=== PATIENT | female | born 1970 | race Caucasian/White ===

== ENCOUNTER → 2018-07-24 10:50 | Outpatient (POV) | payer BC, SELFPAY | PROVIDERS: Visit Provider Specialist | DX: R20.8 Other disturbances of skin sensation (principal); R20.2 Paresthesia of skin | CPT/HCPCS: 95886; 95910 ==

== ENCOUNTER → 2020-08-28 15:36 | Outpatient (CLI) | payer BC, SELFPAY ==
--- NOTE | 2020-08-28 15:41 | XR_ITS ---
PROCEDURE: XR RIBS RT MIN 3V W CXR1V CLINICAL INDICATION: CHEST WALL ASYMMETRY COMPARISON: No exams were available for comparison FINDINGS: View of the chest shows no acute finding. There is minimal upper thoracic curvature convex right. Multiple views of the right ribs show no fracture or dislocation. No lytic or blastic change. IMPRESSION: Negative right ribs with chest. CT may be of further value for or thoracic asymmetry of clinically warranted Dictated by: Chuck Goss MD 08/28/2020 16:39 Chuck Goss MD in [place] 08/28/2020 16:39
== END ==
PROVIDERS: PCP Nurse Practitioner Family; Visit Provider Nurse Practitioner Family
DX: Q67.8 Other congenital deformities of chest (principal)
CPT/HCPCS: 71101

== ENCOUNTER 2023-09-23 13:16 | Outpatient (CLI) | payer BC, SELFPAY ==
--- NOTE | 2023-09-23 13:16 | MM_ITS ---
PROCEDURE INFORMATION: Exam: MG Bilateral Screening 3D Mammography Exam date and time: 09/23/2023 1:18 PM Age: 53 years old Clinical indication: Screening examination TECHNIQUE: Imaging protocol: Bilateral Screening tomosynthesis and 2D mammography including computer-aided detection (CAD) when performed. COMPARISON: No relevant prior studies available. FINDINGS: MAMMOGRAPHY: Breast composition: The breasts are heterogeneously dense, which may obscure small masses. Mass: None. Architectural distortion: None. Calcifications: No suspicious calcifications. Asymmetric density: None. Skin thickening: None. Axillary adenopathy: None. IMPRESSION: No mammographic evidence of malignancy. Annual screening is recommended unless otherwise clinically indicated. ASSESSMENT: BI-RADS Category 1: Negative
== END 2023-09-23 23:59 | disposition home or self-care (01) ==
LOC: RAD 13:16
PROVIDERS: PCP Nurse Practitioner Family; Visit Provider Nurse Practitioner Family
DX: Z12.31 Encounter for screening mammogram for malignant neoplasm of breast (principal)
CPT/HCPCS: 77063; 77067

== ENCOUNTER 2023-10-29 08:59 | Outpatient (CLI) | payer OTHER, SELFPAY ==
--- NOTE | 2023-10-29 09:04 | XR_ITS ---
FINAL REPORT CLINICAL HISTORY: right forearm pain, workmans comp FINDINGS: Two views of the right forearm were obtained. There is no acute fracture or dislocation. The joints are intact. There are no soft tissue abnormalities. IMPRESSION: No acute process. Reviewed, Interpreted and Dictated by Reji Ron MD Transcribed by Francine Thacker Authenticated and [facility]
--- NOTE | 2023-10-29 09:04 | XR_ITS ---
FINAL REPORT CLINICAL HISTORY: right wrist pain FINDINGS: Three views show no evidence of an acute, displaced fracture or dislocation of the visualized bony architecture. The joint spaces appear normal. IMPRESSION: Unremarkable exam. Reviewed, Interpreted and Dictated by Reji Ron MD Transcribed by Francine Thacker Authenticated and [facility]
== END 2023-10-29 23:59 | disposition home or self-care (01) ==
PROVIDERS: PCP Nurse Practitioner Family; Visit Provider Nurse Practitioner Family
DX: M25.531 Pain in right wrist (principal); M79.631 Pain in right forearm; M65.831 Other synovitis and tenosynovitis, right forearm
CPT/HCPCS: 73090; 73110

== ENCOUNTER 2024-01-21 09:58 | Outpatient (CLI) | payer BC, SELFPAY ==
[2024-01-21 13:07] LABS: Microscopic, Urine URINE MICROSCOPIC (MICROSCOPIC)
[2024-01-21 13:31] LABS: Appearance,Urine CLOUDY (Clear); Bilirubin,Urine Negative (Negative); Blood, Urine 3+ (Negative); Color,Urine YELLOW (Yellow); Glucose,Urine (UA) Negative (Negative); Ketones,Urine Negative (Negative); Leukocyte Esterase,Urine 2+ (Negative); Nitrate,Urine POSITIVE (Negative); Protein,Urine 1+ (Negative); Specific Gravity, Urine 1.025 (1.005-1.030); Urobilinogen,Urine 0.2 EU/dl (0.2)
[2024-01-21 13:43] LABS: Bacteria,Urine 1+ /lpf; WBC,Urine 20-50 #/hpf (0-3)
== END 2024-01-21 23:59 | disposition home or self-care (01) ==
LOC: LAB.DROPOF 01-22 08:59
PROVIDERS: PCP Nurse Practitioner Family; Visit Provider Nurse Practitioner Family
DX: N39.0 Urinary tract infection, site not specified (principal)
CPT/HCPCS: 81001; 87086; 87088; 87186

== ENCOUNTER 2024-02-10 15:54 | Outpatient (CLI) | payer BC, SELFPAY ==
[2024-02-10 16:38] LABS: Microscopic, Urine URINE MICROSCOPIC (MICROSCOPIC)
[2024-02-10 17:23] LABS: Appearance,Urine CLEAR (Clear); Bilirubin,Urine Negative (Negative); Blood, Urine Negative (Negative); Color,Urine YELLOW (Yellow); Glucose,Urine (UA) Negative (Negative); Ketones,Urine Negative (Negative); Leukocyte Esterase,Urine 3+ (Negative); Nitrate,Urine POSITIVE (Negative); Protein,Urine Negative (Negative); Urobilinogen,Urine 0.2 EU/dl (0.2)
[2024-02-10 17:52] LABS: Bacteria,Urine 4+ /lpf; WBC,Urine TNTC #/hpf (0-3)
== END 2024-02-10 23:59 | disposition home or self-care (01) ==
LOC: LAB.DROPOF 02-11 11:01
PROVIDERS: PCP Nurse Practitioner Family; Visit Provider Nurse Practitioner Family
DX: N39.0 Urinary tract infection, site not specified (principal)
CPT/HCPCS: 81001; 87086; 87088; 87186

== ENCOUNTER 2024-04-29 07:58 | Day surgery (SDC) | payer BC, SELFPAY ==
[2024-04-28 10:37] VITALS: BMI 22.3
[2024-04-29] MEDS: LACTATED RINGERS 1000ML 1,000 ML 25 ML IV (08:12)
[2024-04-29 08:13] VITALS: BP 118/71; PULSE 67; RESP 18; TEMP 36.6; O2SAT 97
--- NOTE | 2024-04-29 08:26 | EXP.ANES.CKL ---
[facility] Disclaimer: The information contained in this section may have been updated after the patient was seen, as this information can be updated by other users. Medical History Carpal tunnel syndrome of right wrist Extensor tenosynovitis of right wrist Tenosynovitis of right wrist Surgical History History of carpal tunnel release Family History Other No significant family history Social History Smoking Status: Never smoker alcohol intake: never substance use type: denies use current occupational status: employed Travel in the last 8 weeks: None household members: family housing: house [facility] Anesthesia Checklist Patient Identification Patient Identification: Arm Band and Verbal (Name & ) Structural Data Admitted From: Home Planned Operative Procedure/s: EGD/Colonoscopy Consent for Planned Operative Procedure(s) Verified: Yes Verified Documents: Surgical Consent and History and Physical NPO Status Verified Time NPO: 04:45 Additional verifications Anesthesia Reactions: No Airway Assessment Mallampati Score:: Class II C-Spine Mobility Assessed: Yes TMJ Mobility Assessed: Yes Dentition: Good Dentition Neurological Assessment Level of Consciousness: Awake Hx Seizures: No Numbness or tingling in extremities: No Anesthesia Plan Anesthesia Risk discussed: Yes Anesthesia Plan: Verified ASA Class: I Anesthesia Type: MAC
--- NOTE | 2024-04-29 09:28 | EXP.HP ---
History of Present Illness *Admission Date: 04/29/24 *Reason for visit:: Dysphagia for upper endoscopy and screening for colonoscopy *History of present illness: Mrs. Shelley is a 53-year-old female who is here for therapeutic/diagnostic upper endoscopy secondary to dysphagia and screening for colonoscopy. The examination is deemed medically necessary for EGD and colonoscopy. The patient has been seen, interviewed and examined prior to the procedure by both myself and the anesthesia provider. [facility] Disclaimer: The information contained in this section may have been updated after the patient was seen, as this information can be updated by other users. Medical History Carpal tunnel syndrome of right wrist Extensor tenosynovitis of right wrist Tenosynovitis of right wrist Surgical History History of carpal tunnel release Family History Other No significant family history Social History (Updated 04/29/24 @ 08:27 by Roberto Carlos Sykes CRNA) Smoking Status: Never smoker alcohol intake: never substance use type: denies use current occupational status: employed Travel in the last 8 weeks: None household members: family housing: house Have you lived/traveled outside US in past 30 days?: No Contact w/someone who lives/traveled outside US past 30 days?: No Exposure to someone with infectious disease in past 14 days?: No Do you have a fever (greater than 100.4 F or 38 C)?: No Have you tested positive for COVID-19: No Exposed to someone with COVID-19 in past 14 days?: No Do you have a sore throat?: No Do you have a cough?: No Do you have any weakness?: No Are you experiencing any nausea/vomitting?: No Do you have any diarrhea?: No Are you experiencing any unusual bleeding?: No Do you have any muscle aches/pain?: No Do you have any abdominal pain?: No Are you experiencing loss of taste or smell?: No Other Medical History Have you received the Pneumonia Vaccine: No Review of Systems Review of Systems Review of systems (narrative): Negative *Cardiovascular Comments: Negative *Gastrointestinal Comments: Negative *Genitourinary Comments: Negative *Musculoskeletal Comments: Negative *Neurologic Comments: Negative Meds Home Medications and Allergies Home Medications ?Medication ?Instructions ?Recorded ?Confirmed ?Type No Known Home Medications 04/29/24 04/29/24 History New Prescriptions to Start Prescriptions: Allergies Allergy/AdvReac Type Severity Reaction Status Date / Time Sulfa (Sulfonamide Allergy Mild Rash Verified 04/29/24 08:13 Antibiotics) Exam Data for Last 24 hours Vital signs and Labs for Last 24 Hours: Temp Pulse Resp BP Pulse Ox O2 Del Method 97.8 F 67 18 118/71 97 Room Air 04/29/24 08:13 04/29/24 08:13 04/29/24 08:13 04/29/24 08:13 04/29/24 08:13 04/29/24 08:13 I & O for Last 24 hours: Intake & Output 04/26/24 04/27/24 04/28/24 04/29/24 23:59 23:59 23:59 23:59 Weight 134 lb *Routine HEENT Exam Head: Present normocephalic Eye: Present EOMI and PERRL ENT: Present mucous membranes moist *Routine Neck Exam Neck: Present supple *Routine Respiratory Exam Respiratory: Present CTA bilaterally *Routine Cardiovascular Exam Cardiovascular: Present RRR *Routine Abdominal Exam Abdominal: Present soft and normoactive bowel sounds; Absent tenderness *Routine Rectal Exam Rectal:: deferred *Routine Genitalia Exam Genitalia:: deferred *Routine Extremities Exam Extremities: Absent cyanosis, clubbing or edema *Routine Skin Exam Skin: Present warm; Absent rash *Routine Neurological Exam Neurological: Present alert and oriented X3 Assessment and Plan *Assessment and plan (1) Dysphagia: Status: Acute Category: Medical Code(s): R13.10 - Dysphagia, unspecified (2) Screening for colon cancer: Status: Acute Category: Medical Code(s): Z12.11 - Encounter for screening for malignant neoplasm of colon Plan A/P: 1. Dysphagia for upper endoscopy and screening for colon cancer for colonoscopy is the preprocedural diagnosis. The patient will be anesthetized/sedated using MAC sedation. The patient has been seen and examined. Cardiac and lung assessment prior to the examination is stable. Proceed with planned EGD and colonoscopy
[2024-04-29 09:32] VITALS: O2SAT 97
--- NOTE | 2024-04-29 09:45 | HMH.PROCNOTE ---
[facility] Procedure Note Date: 04/29/24 Time: 09:53 Procedure Note:: Upper Endoscopy Procedure Report: Esophagogastroduodenoscopy with cold biopsies and TTS balloon dilation Endoscopost: Adam Fonseca II, MD Referring Physician: HALINA Martel Date of Procedure: April 29, 2024 Equipment: Olympus GIF 190 standard upper endoscope Sedation: MAC sedation Indications: Mrs. Shelley is a 53-year-old female who is here for diagnostic/therapeutic upper endoscopy secondary to dysphagia which she has had for a few years. She does not have to regurgitate food but feels this intermittently and it occurs primarily with solids. She does get some chronic heartburn and bloating. She reports no belching or globus sensation. She does have some chronic constipation. This is her first upper endoscopy. Procedure: Prior to the procedure, a history and physical exam was performed, and patient's medications and allergies were reviewed. The risks, benefits and alternatives of the sedation and procedure were discussed with the patient. All questions were answered and informed consent was obtained. The patient was brought to the procedure room. Patient identification and proposed procedure were verified by the physician and the nurse. The patient was placed in a left lateral decubitus position and the scope was passed under direct vision. Throughout the procedure, the patient's blood pressure, pulse, and oxygen saturations were monitored continuously. The upper GI endoscopy was accomplished without difficulty. The patient tolerated the procedure well. Findings: The scope was passed directly into the upper esophagus and advanced to the third portion of the duodenum. The post bulbar duodenum and duodenal bulb were normal with normal mucosa and conniventes. The scope was withdrawn through a normal duodenal bulb and pylorus into the stomach. There was some linear reactive gastropathy of the antrum and mild chronic gastritis of the body and fundus. Biopsies were taken from the antrum and lesser curvature. Upon retroflexion there was no hiatal hernia. The scope was then withdrawn into the esophagus. There was no evidence of reflux esophagitis, Schatzki's ring or Crockett's. Biopsies were taken at the GE junction. There was no corrugation or furrowing. There was no proximal esophageal inlet patch. There were tertiary contractions and evidence of moderate esophageal dysmotility. The entire esophagus was dilated to 60 Kiswahili/20 mm with a TTS hydrostatic balloon. There was some resistance at the cricopharyngeus/cricopharyngeal spasm. The remainder of the esophageal mucosa was normal. Impression: 1. Cricopharyngeal spasm status post dilation to 20 mm 2. Nonerosive GERD with moderate esophageal dysmotility 3. Linear reactive gastropathy and mild chronic gastritis Plan: I will follow-up the biopsies and discussed the findings with the patient and family. I do feel that her cricopharyngeal spasm is resulting in some of the swallowing difficulties. She should have improvement with dilation and we will discuss additional treatment options including Iberogast. I will proceed with screening colonoscopy.
--- NOTE | 2024-04-29 09:55 | HMH.PROCNOTE ---
[facility] Procedure Note Date: 04/29/24 Time: 10:09 Procedure Note:: Colonoscopy Procedure Report: Colonoscopy Endoscopist: Adam Fonseca II, MD Referring physician: HALINA Martel Date of Procedure: April 29, 2024 Equipment: Olympus 190 variable stiffness pediatric colonoscope Sedation: MAC sedation Indication: Mrs. Shelley is a 53-year-old female who is here for initial screening colonoscopy. She reports no abdominal pain, weight loss, change in her bowel habits or rectal bleeding. She reports no family history of colon cancer. She does have some chronic idiopathic constipation. Procedure: Prior to the procedure, a history and physical exam was performed, and patient's medications and allergies were reviewed. The risks, benefits and alternatives of the sedation and procedure were discussed with the patient. All questions were answered and informed consent was obtained. The patient was brought to the procedure room. Patient identification and proposed procedure were verified by the physician and the nurse. The patient was placed in a left lateral decubitus position and the scope was passed under direct vision. Throughout the procedure, the patient's blood pressure, pulse, and oxygen saturations were monitored continuously. The colonoscopy was accomplished without difficulty. The patient tolerated the procedure well. Findings: On digital rectal examination there was normal rectal tone. There were no external hemorrhoids. The colonoscope was introduced through the anal canal to the rectum and advanced to the cecum. The ileocecal valve and appendiceal orifice were identified. The scope was advanced a short distance into the ileum which appeared grossly normal. The scope was then withdrawn into the colon. There was very mild melanosis coli noted throughout the colon. The cecum, ascending, transverse, descending, sigmoid and rectum were otherwise grossly normal. There were no mucosal abnormalities identified. Upon retroflexion within the rectum there were grade 1-2 internal hemorrhoids.The preparation was excellent throughout with [place] Preparation Score of 9. The cecal time was 10 minutes. Impression: 1. Normal colonoscopy with intubation of the terminal ileum 2. Mild melanosis coli 3. Grade 1-2 internal hemorrhoids Plan: The patient will not require surveillance colonoscopy again for 10 years. The patient does have mild melanosis coli. Melanosis coli is a disorder of pigmentation of the wall of the colon. It is benign and has no correlation with disease. Melanosis coli is a misnomer since the brown pigmentation is actually caused by a substance call lipofuscin deposited in cells called macrophages. It is not a melanin deposit. It is most commonly caused by a group of laxatives commonly known to us as anthroquinolones such as senna and other plant/natural laxatives. No adverse effects or consequences of melanosis coli have ever been identified. I would still consider a change to bowel habit training with Linzess or Trulance. I will discuss the findings with the patient and family.
[2024-04-29 10:14] VITALS: BP 110/69; PULSE 84; RESP 16; TEMP 36.1; O2SAT 98
[2024-04-29 10:24] VITALS: BP 103/75; PULSE 72; RESP 18; O2SAT 99
[2024-04-29 10:34] VITALS: BP 103/67; PULSE 58; RESP 16; O2SAT 99
[2024-04-29 10:44] VITALS: BP 110/70; PULSE 62; RESP 16; O2SAT 99
== END 2024-04-29 11:00 | disposition home or self-care (01) ==
PROVIDERS: PCP Nurse Practitioner Family; Visit Provider Internal Medicine Gastroenterology
PROC: 0DJ08ZZ Inspection of Upper Intestinal Tract, Via Natural or Artificial Opening Endoscopic (ICD-10-PCS; CPT 45378; principal; 2024-04-29 09:30)
DX: R13.10 Dysphagia, unspecified (principal); K59.04 Chronic idiopathic constipation; K31.9 Disease of stomach and duodenum, unspecified; K29.70 Gastritis, unspecified, without bleeding; K22.4 Dyskinesia of esophagus; K21.9 Gastro-esophageal reflux disease without esophagitis; J39.2 Other diseases of pharynx; K63.89 Other specified diseases of intestine; K64.8 Other hemorrhoids; Z12.11 Encounter for screening for malignant neoplasm of colon
CPT/HCPCS: 43239; 43249; 45378; C1726; J7120

== ENCOUNTER 2024-06-15 09:49 | Outpatient (CLI) | payer BC, SELFPAY ==
[2024-06-15 16:41] LABS: Microscopic, Urine URINE MICROSCOPIC (MICROSCOPIC)
[2024-06-15 20:18] LABS: Appearance,Urine CLEAR (Clear); Bilirubin,Urine Negative (Negative); Blood, Urine Negative (Negative); Color,Urine YELLOW (Yellow); Glucose,Urine (UA) Negative (Negative); Ketones,Urine Negative (Negative); Leukocyte Esterase,Urine TRACE (Negative); Nitrate,Urine Negative (Negative); PH,Urine 6.5 (5.0-8.5); Protein,Urine Negative (Negative); Specific Gravity, Urine 1.025 (1.005-1.030); Urobilinogen,Urine 0.2 EU/dl (0.2)
[2024-06-15 20:23] LABS: Bacteria,Urine 1+ /lpf; Squamous Epithelial Cell,Urine 20-50 #/hpf (0-5)
== END 2024-06-15 23:59 | disposition home or self-care (01) ==
LOC: LAB.DROPOF 06-16 09:49
PROVIDERS: PCP Nurse Practitioner Family; Visit Provider Nurse Practitioner Family
DX: N39.0 Urinary tract infection, site not specified (principal)
CPT/HCPCS: 81001; 87086; 87088; 87186

== ENCOUNTER 2024-07-06 15:20 | Outpatient (CLI) | payer BC, SELFPAY ==
[2024-07-06 16:52] LABS: Microscopic, Urine URINE MICROSCOPIC (MICROSCOPIC)
[2024-07-06 17:02] LABS: Appearance,Urine CLEAR (Clear); Bilirubin,Urine Negative (Negative); Blood, Urine Negative (Negative); Color,Urine YELLOW (Yellow); Glucose,Urine (UA) Negative (Negative); Ketones,Urine Negative (Negative); Leukocyte Esterase,Urine Negative (Negative); Nitrate,Urine Negative (Negative); Protein,Urine Negative (Negative); Specific Gravity, Urine >= 1.030 (1.005-1.030); Urobilinogen,Urine 0.2 EU/dl (0.2)
[2024-07-06 17:43] LABS: Bacteria,Urine 2+ /lpf; Mucus,Urine 3+ /lpf
== END 2024-07-06 23:59 | disposition home or self-care (01) ==
LOC: LAB.DROPOF 18:37
PROVIDERS: PCP Nurse Practitioner Family; Visit Provider Nurse Practitioner Family
DX: R30.0 Dysuria (principal); N39.0 Urinary tract infection, site not specified
CPT/HCPCS: 81001; 87086

== ENCOUNTER 2024-07-29 14:45 | Outpatient (CLI) | payer BC, SELFPAY ==
[2024-07-29 17:06] LABS: Microscopic, Urine URINE MICROSCOPIC (MICROSCOPIC)
[2024-07-29 17:16] LABS: Bilirubin,Urine Negative (Negative); Blood, Urine Negative (Negative); Color,Urine YELLOW (Yellow); Glucose,Urine (UA) Negative (Negative); Ketones,Urine Negative (Negative); Leukocyte Esterase,Urine MODERATE (Negative); Nitrate,Urine Negative (Negative); PH,Urine 5.5 (5.0-8.5); Protein,Urine Negative (Negative); Specific Gravity, Urine >= 1.030 (1.005-1.030); Urobilinogen,Urine 0.2 EU/dl (0.2)
[2024-07-29 17:18] LABS: Appearance,Urine Slightly Cloudy (Clear)
[2024-07-29 17:45] LABS: Bacteria,Urine 3+ /lpf; Calcium Oxalate Crystals,Urine 1+ /lpf; Mucus,Urine 3+ /lpf; WBC,Urine 50-100 #/hpf (0-3)
== END 2024-07-29 23:59 | disposition home or self-care (01) ==
LOC: LAB.DROPOF 07-30 11:14
PROVIDERS: PCP Nurse Practitioner Family; Visit Provider Nurse Practitioner Family
DX: N39.0 Urinary tract infection, site not specified (principal)
CPT/HCPCS: 81001; 87086; 87088; 87186

== ENCOUNTER 2024-08-20 10:56 | Outpatient (CLI) | payer BC, SELFPAY ==
--- OUTSIDE RECORDS SUMMARY | 2024-08-23 10:58 | XMS_ITS | Clinical Summary ---
Author Organization [facility] Address [address] [place] [address] Phone Care Team Providers Care Service Supervisor Name Role Phone Adithya POSEY, Julio Unavailable [phone] NO, PCP Unavailable Unavailable Reason for Visit and Chief Complaint [facility] Problems Includes: Problems addressed during this encounter and other active Problems All Visits Onset Date Resolved Date Provider Condition S tatus Joint Pain, Localized in the Right Wrist 01/06/2024 Robbie Leon PA-C Active Last Documented On 4 11:39AM ; [facility] Plan of Treatment No Plan of Treatment Recorded Assessments Includes: Assessments from this encounter No Assessments Recorded Medical Equipment - Implanted Devices Includes: Current Devices No Medical Equipment Recorded Medications Includes: Medications discussed during this encounter and other current Medications Current Medications (continue as prescribed) Cephalexin 500 MG Oral Capsule 04/19/2024 Provider: Julio Haji MD Diagnosis: 1 tablet four times a dayTAK E FIRST DOSE 1 HOUR PRIOR TO PROCEDURE Last Documented On 4 11:28AM By Bess [facility], [facility] Meloxicam 15 MG Oral Tablet 04/19/2024 Provider: Julio Haji MD Diagnosis: take 1 tablet once a dayBEGI N AFTER COMPLETION OF DOSE PACK Last Documented On 4 11:28AM By Bess [facility], [facility] Medrol 4 MG Oral Tablet Therapy Pack 04/19/2024 Prov ider: Julio Haji MD Diagnosis: use as directed Last Documented On 4 11:28AM By Bess Barreto ; [facility] Medications Administered Includes: Administered Medications from this encounter No Administered Medications Recorded Results Includes: Results discussed during this encounter No Results Recorded For Specified Dates History of Present Illness Includes: History of Present Illness from this encounter No History of Present Illness Recorded Social History No Social History Recorded - Smoking Status Unknown Medical History Includes: Medical History addressed during this encounter No Medical History Recorded Family History Includes: Family History addressed during this encounter No Family History Recorded Review of Systems Includes: Review of Systems from this encounter No Review of Systems Recorded Mental Status Includes: Mental Status from this encounter No Mental Status Recorded Functional Status Includes: Functional Status from this encounter No Functional Status Recorded Physical Exam Includes: Physical Exam from this encounter No Physical Exam Recorded Allergies Includes: Active Allergies Substance Type Reaction Onset Date Resolved Date Statu s Sulfa Antibiotics Allergy Skin Rashes / Eruption of skin 01/06/2024 Active Last Documented On 5 1:55PM ; [facility] Encounters Encounter Provider Location Date Check-In Time Check-Out Time Diagnosis [facility] Julio Haji MD 4 9:00AM 11:59PM Insurance Includes: Active Insurance Policies Plan Name Member ID Group # Subscriber Relationship Effect rosie Dates 1 - [facility] [id number] August Karsten Self 2 - [id number] [facility] 05/27 - Unknown 3 - [employer] [id number] [address] [facility] 05/27/2023 - Unknown 4 - [employer] [id number] [facility] 2023 - Unknown Clinical Notes Includes: Clinical Notes from this encounter No Clinical Notes Recorded
--- OUTSIDE RECORDS SUMMARY | 2024-08-23 10:58 | XMS_ITS | Clinical Summary ---
Author Organization [facility] Address [address] [place] [address] Phone Care Team Providers Care Central Supply Technician Supervisor Name Role Phone Adithya POSEY, Julio Unavailable [phone] NO, PCP Unavailable Unavailable Reason for Visit and Chief Complaint [facility] Problems Includes: Problems addressed during this encounter and other active Problems All Visits Onset Date Resolved Date Provider Condition S tatus Joint Pain, Localized in the Right Wrist 01/06/2024 Robbie Leon PA-C Active Last Documented On 4 11:39AM ; [facility] Plan of Treatment No Plan of Treatment [...] Documented On 4 11:28AM By Bess [facility], [facility] Meloxicam 15 MG Oral Tablet 04/19/2024 Provider: Julio Haji MD Diagnosis: take 1 tablet once a dayBEGI N AFTER COMPLETION OF DOSE PACK Last Documented On 4 11:28AM By Bess [facility], [facility] Medrol 4 MG Oral Tablet Therapy Pack 04/19/2024 Prov ider: Julio Haji MD Diagnosis: use as directed Last Documented On 4 11:28AM By Bess Barreto ; [facility] Medications Administered Includes: Administered Medications from this encounter No Administered Medications Recorded Results Includes: Results discussed during this encounter No Results Recorded For Specified Dates History of Present Illness Includes: History of Present Illness from this encounter No History of Present Illness Recorded Social History No Social History Recorded - Smoking Status Unknown Procedures and Surgical History Includes: Procedures from this encounter Procedures Code Diagnosis Performing Provider Service Location Service Date DECOMPRESSION MEDIAN NERVE AT CARPAL (LEFT) 18232 Carpal tunnel syndrome, left upper limb Julio Haji MD [facility] 04/20/2024 Last Documented On 4 10:35AM ; [facility] Medical History Includes: Medical History addressed during [...] Active Last Documented On 5 1:55PM ; [facility], [facility] Encounters Encounter Provider Location Date Check-In Time Check-Out Time Diagnosis [facility] Julio Haji MD Surgery 4 8:48AM 11:59PM Insurance Includes: Active Insurance Policies Plan Name Member ID Group # Subscriber Relationship Effect rosie Dates 1 - [facility] [id number] August Karsten Self 2 - JESSICA [id number] August Karsten [place] 05/27 - Unknown 3 - [employer] [id number] August Karsten [place] 05/27/2023 - Unknown 4 - [employer] [id number] August Karsten [facility] 2023 - Unknown Clinical Notes Includes: Clinical Notes from this encounter No Clinical Notes Recorded
--- OUTSIDE RECORDS SUMMARY | 2024-08-23 10:58 | XMS_ITS | Clinical Summary ---
Author Organization [facility] , [facility] Address [address] [place] [address] Phone Care Team Providers Care Horologist Apprentice Name Role Phone Adithya POSEY, Julio Unavailable [phone] NO, PCP Unavailable Unavailable Reason for Visit and Chief Complaint The Chief Complaint is: right wrist pain Problems Includes: Problems addressed during this encounter and other active Problems All Visits Onset Date Resolved Date Provider Condition S tatus Joint Pain, Localized in the Right Wrist 01/06/2024 Robbie Leon PA-C Active Last Documented On 4 11:39AM ; [facility] Plan of Treatment Pending Tests Order Diagnosis Results Due Ordering P rovider Procedure/Tests BGO EMG 04/05/24 Robbie gould PA-C Last Documented On 4 9:45AM ; [facility], [facility] Assessments Includes: Assessments from this encounter Findings 53-year-old Female with improved right ECU tendinitis. The patient was doing quite well. Her pain is much better, but does still have some discomfort with strong gripping and twisting activities. Recommend a wrist widget to help with the symptom. Okay to return to work without restriction. She may follow up with us as needed moving forward - Last Documented On 06/03/2024 8:51AM ; [facility] Medical Equipment - Implanted Devices Includes: Current Devices No Medical Equipment Recorded Medications Includes: Medications discussed during this encounter and other current Medications Current Medications (continue as prescribed) Cephalexin 500 MG Oral Capsule 04/19/2024 Provider: Julio Haji MD Diagnosis: 1 tablet four times a dayTAK E FIRST DOSE 1 HOUR PRIOR TO PROCEDURE Last Documented On 11:28AM By Bess Barreto ; [facility], [facility] Meloxicam 15 MG Oral Tablet 04/19/2024 Provider: Julio Haji MD Diagnosis: take 1 tablet once a dayBEGI N AFTER COMPLETION OF DOSE PACK Last Documented On 11:28AM By Bess Barreto ; [facility] Medrol 4 MG Oral Tablet Therapy Pack 04/19/2024 Prov ider: Julio Haji MD Diagnosis: use as directed Last Documented On 4 11:28AM By Bess Barreto ; [facility] Past Medications on file dexAMETHasone Sodium Phospha te 4 MG/ML Injection Solution 01/21/2024 - 02/20/2024 Provider: Robbie gould PA-C Diagnosis: use as directed; to be used by Physical Therapy Last Documented On 1:39PM By Loretta Ernandez ; [facility] Medications Administered Includes: Administered Medications from this encounter No Administered Medications Recorded Vital Signs Includes: Vital Signs from this encounter Vital Name 06/02/2024 01:56P Height (in) 65 Weight (lb) 135 Body Mass Index 22.5 Body Surface Area 1.7 Note: MG Last Documented: On 06/02/2024 1:56PM ; [facility] Results Includes: Results discussed during this encounter No Results Recorded For Specified Dates History of Present Illness Includes: History of Present Illness from this encounter HPI Tsering Shelley is a 53 year old female. - Allergy list reviewed - Problem list reviewed - Medication list reviewed 53-year-old female here for follow-up of her right ECU tendinitis. The patient was ulnar-sided wrist pain has doing much better. She was little to no symptoms. She was doing most all activities around the house without significant issue, but does still have some slight discomfort with strong gripping and twisting activities.. Social History Description Last Updated Caffeine use 06/02/2024 Last Documented On 5 8:51AM ; [facility] Exercising regularly 06/02/2024 Last Documented On 5 8:51AM ; [facility] No recent change in diet 06/02/2024 Last Documented On 5 8:51AM ; [facility] Not a current smoker. 06/02/2024 Last Documented On 5 8:51AM ; [facility] Not using alcohol 06/02/2024 Last Documented On 5 8:51AM ; [facility] Not using drugs 06/02/2024 Last Documented On 5 8:51AM ; [facility] Smoking Status Unknown Procedures and Surgical History Surgical History Last Updated History of hysterectomy 06/02/2024 Last Documented On 5 8:51AM ; [facility] Medical History Includes: Medical History addressed during this encounter Description Last Updated Past medical history non-contributory Last Documented On 5 8:51AM ; [facility] Family History Includes: Family History addressed during this encounter Description Last Updated Maternal history of family history of ca ncer 06/02/2024 Last Documented On 5 8:51AM ; [facility] Review of Systems Includes: Review of Systems from this encounter Systemic: Not feeling tired, no recent weight loss, and no recent weight gain. Head: No headache and no sinus pain. Eyes: No vision problems, no Cataracts, no Glasses/Contacts, and no Glaucoma. Otolaryngeal: No hearing loss and no tinnitus. Cardiovascular: No chest pain or discomfort, no palpitations, no Hypertension, and no High Cholesterol. Pulmonary: No daytime asthma symptoms and no chronic cough. No wheezing. Gastrointestinal: No heartburn and no abdominal pain. No Indigestion, no Peptic Ulcer, no GI Stomach Bleed, no Ulcers, and no Acid Reflux. Endocrine: No hot flashes, no muscle weakness, no Diabetes, no Hypothyroid, and no Hyperthyroid. Hematologic: No easy bleeding, no tendency for easy bruising, and no Anemia. Musculoskeletal: No Arthritis and no lower back pain. No soft tissue swelling and no localized joint pain. Neurological: No dizziness, no convulsions, and no numbness. Psychological: No anxiety, no emotional lability, no depression, and no insomnia. Not crying for no reason. Skin: No dry skin. No Ulcers, no Scars, and no rash. Allergic and Immunologic: No complaint of seasonal allergic reaction. Mental Status Includes: Mental Status from this encounter Description No anxiety Functional Status Includes: Functional Status from this encounter No Functional Status Recorded Physical Exam Includes: Physical Exam from this encounter Allergies Includes: Active Allergies Substance Type Reaction Onset Date Resolved Date Statu s Sulfa Antibiotics Allergy Skin Rashes / Eruption of skin 01/06/2024 Active Last Documented On 1:55PM ; [facility], [facility] Encounters Encounter Provider Location Date Check-In Time Check-Out Time Diagnosis FOLLOW UP/EST Robbie Leon PA-C [facility] 06/02/19 25 1:29PM 2:38PM Insurance Includes: Active Insurance Policies Plan Name Member ID Group # Subscriber Relationship Effect rosie Dates 1 - [id number] Tsering Shelley Self 2 - JESSICA [id number] Tsering Shelley Self 05/27 - Unknown 3 - [employer] [id number] Tsering Pringle 05/27/2023 - Unknown 4 - [employer] [id number] Tsering Shelley Self 2023 - Unknown Clinical Notes Includes: Clinical Notes from this encounter * Progress note Date Encounter Last Documented by 06/02/2024 FOLLOW UP/EST Last documented on 06/03/2024; 8:51 AM, Robbie Leon PA-C; [facility], [facility] Active Problems & Conditions - Joint Pain, Localized in the Right Wrist Chief Complaint The Chief Complaint is: Right wrist pain. Referred Here Referred by . History of Present Illness Tsering Shelley is a 53 year old female. - Allergy list reviewed - Problem list reviewed - Medication list reviewed 53-year-old female here for follow-up of her right ECU tendinitis. The patient was ulnar-sided wrist pain has doing much better. She was little to no symptoms. She was doing most all activities around the house without significant issue, but does still have some slight discomfort with strong gripping and twisting activities.. Current Medication - Cephalexin 500 MG Oral Capsule 1 tablet four times a dayTAKE FIRST DOSE 1 HOUR PRIOR TO PROCEDURE, 7 days, 0 refills - Medrol 4 MG Oral Tablet Therapy Pack use as directed, 6 days, 0 refills - Meloxicam 15 MG Oral Tablet take 1 tablet once a dayBEGIN AFTER COMPLETION OF DOSE PACK, 30 days, 1 refills Past Medical/Surgical History Past medical history non-contributory. Surgical: - Hysterectomy Social History Not a current smoker. Current diet: No recent change in diet. Caffeine use: Caffeine use. Alcohol: Not using alcohol. Drug Use: Not using drugs. Habits: Exercising regularly. Allergies - Sulfa Antibiotics Reaction: Skin Rashes / Eruption of skin Family History Maternal: Cancer Review Of Systems Systemic: Not feeling tired, no recent weight loss, and no recent weight gain. Head: No headache and no sinus pain. Eyes: No vision problems, no Cataracts, no Glasses/Contacts, and no Glaucoma. Otolaryngeal: No hearing loss and no tinnitus. Cardiovascular: No chest pain or discomfort, no palpitations, no Hypertension, and no High Cholesterol. Pulmonary: No daytime asthma symptoms and no chronic cough. No wheezing. Gastrointestinal: No heartburn and no abdominal pain. No Indigestion, no Peptic Ulcer, no GI Stomach Bleed, no Ulcers, and no Acid Reflux. Endocrine: No hot flashes, no muscle weakness, no Diabetes, no Hypothyroid, and no Hyperthyroid. Hematologic: No easy bleeding, no tendency for easy bruising, and no Anemia. Musculoskeletal: No Arthritis and no lower back pain. No soft tissue swelling and no localized joint pain. Neurological: No dizziness, no convulsions, and no numbness. Psychological: No anxiety, no emotional lability, no depression, and no insomnia. Not crying for no reason. Skin: No dry skin. No Ulcers, no Scars, and no rash. Allergic and Immunologic: No complaint of seasonal allergic reaction. Physical Findings - Vitals taken 06/02/2024 01:56 pm MG Height 65 in Weight 135 lbs Body Mass Index 22.5 kg/m2 Body Surface Area 1.7 m2 PHYSICAL EXAM: CONSTITUTIONAL: Well developed, well groomed, well nourished patient in no acute distress who appears stated age, height and weight. PSYCHIATRIC: The patient is alert and oriented to person, place, date and situation. Mood and affect are normal for current situation. NEUROLOGICAL: Sensation normal bilateral upper and lower extremities. LYMPHATIC: No pitting edema noted in the lower extremities. SKIN: No lesions noted on upper or lower extremities. Skin is dry, warm and with normal turgor. VASCULAR: No swelling in upper or lower extremities other than described below in extremity exam. Pulses normal in both upper (radial) extremities. GAIT AND STATION: Normal gait without assistive devices. Station normal. RIGHT WRIST/HAND: Able to make a full composite fist Able to fully flex and extend all fingers Hand is warm and well perfused Sensation intact to light touch distally in all nerve distributions No tenderness over the ulnar styloid or 6th dorsal compartment No evidence of ECU subluxation No tenderness in the ulnar fovea Flexion: 90 degrees Extension: 70 degrees Pronation: 90 degrees Supination: 90 degrees Strength: 5/5 wrist flexion, 5/5 extension, 5/5 supination, 5/5 pronation. User Defined 5 53-year-old Female with improved right ECU tendinitis. The patient was doing quite well. Her pain is much better, but does still have some discomfort with strong gripping and twisting activities. Recommend a wrist widget to help with the symptom. Okay to return to work without restriction. She may follow up with us as needed moving forward Counseling/Education - Tobacco non-user - Use of tobacco assessment performed Notes This dictation was done with voice recognition software and may contain errors and omissions. Care Team - PCP NO
--- OUTSIDE RECORDS SUMMARY | 2024-08-23 10:58 | XMS_ITS | Clinical Summary ---
Author Organization [facility] , [facility] Address [address] [place] [address] Phone Care Team Providers Care Calculating Machine Mechanic Name Role Phone Adithya POSEY, Julio Unavailable [phone] NO, PCP Unavailable Unavailable Reason for Visit and Chief Complaint Phone Call Problems Includes: Problems addressed during this encounter and other active Problems All Visits Onset Date Resolved Date Provider Condition S tatus Joint Pain, Localized in the Right Wrist 01/06/2024 Robbie Leon PA-C Active Last Documented On 11:39AM ; [facility], [facility] Plan of Treatment No [...] Documented On 11:28AM By Bess Barreto ; [facility], [facility] Meloxicam 15 MG Oral Tablet 04/19/2024 Provider: Julio Haji MD Diagnosis: take 1 tablet once a dayBEGI N AFTER COMPLETION OF DOSE PACK Last Documented On 11:28AM By Bess Barreto ; [facility], [facility] Medrol 4 MG Oral Tablet Therapy Pack 04/19/2024 Prov ider: Julio Haji MD Diagnosis: use as directed Last Documented On 4 11:28AM By Bess Barreto ; [facility], [facility] Past Medications on file dexAMETHasone Sodium Phospha te 4 MG/ML Injection Solution 01/21/2024 - 02/20/2024 Provider: Robbie gould PA-C Diagnosis: use as directed; to be used by Physical Therapy Last Documented On 4 1:39PM By Loretta Ernandez ; [facility], [facility] Medications Administered Includes: Administered Medications from this encounter No Administered Medications Recorded Results Includes: Results discussed during this encounter No Results Recorded For Specified Dates History of Present Illness Includes: History of Present Illness from this encounter HPI Called patient for phone follow up after left carpal tunnel release with ultrasound guidance. Patient states that she is doing well. Her wound has healed without incident. She states that her preoperative nighttime symptoms have completely gone away. Her daytime symptoms have also improved she has improved numbness and tingling compared to her preoperative status now she only has some intermittent paresthesias in the tips of her fingers. We talked at length about this, she had severe carpal tunnel syndrome prior to surgery which was noted on her EMG I explained that full recovery of the nerve can take up to a year and in some cases full sensation is not possible but her symptoms should continue to improve. She will monitor them and contact us on an as-needed basis if she has any concerns. Social History Description Last Updated Caffeine use 06/02/2024 Last Documented On 4 12:47PM ; [facility], [facility] Exercising regularly 06/02/2024 Last Documented On 4 12:47PM ; [facility], [facility] No recent change in diet 06/02/2024 Last Documented On 4 12:47PM ; [facility], [facility] Not a current smoker. 06/02/2024 Last Documented On 4 12:47PM ; [facility], [facility] Not using alcohol 06/02/2024 Last Documented On 4 12:47PM ; [facility], [facility] Not using drugs 06/02/2024 Last Documented On 4 12:47PM ; [facility], [facility] Smoking Status Unknown Procedures and Surgical History Surgical History Last Updated History of hysterectomy 06/02/2024 Last Documented On 4 12:47PM ; [facility], [facility] Medical History Includes: Medical History addressed during this encounter Description Last Updated Past medical history non-contributory Last Documented On 4 12:47PM ; [facility], [facility] Family History Includes: Family History addressed during this encounter Description Last Updated Maternal history of family history of ca ncer 06/02/2024 Last Documented On 4 12:47PM ; [facility] Review of Systems Includes: Review of Systems [...] Active Last Documented On 5 1:55PM ; [facility], [facility] Encounters Encounter Provider Location Date Check-In Time Check-Out Time Diagnosis Phone Call Julio Haji MD [facility] 4 6:53AM 8:04AM Insurance Includes: Active Insurance Policies Plan Name Member ID Group # Subscriber Relationship Effect rosie Dates 1 - [facility] [id number] Tsering [facility] 2 - JESSICA [id number] [facility] 05/27 - Unknown 3 - [employer] [id number] Tsering Karsten [facility] 05/27/2023 - Unknown 4 - [employer] [id number] [facility] 2023 - Unknown Clinical Notes Includes: Clinical Notes from this encounter * Progress note Date Encounter Last Documented by 04/30/2024 Phone Call Last documented on 04/30/2024; 12:47 PM, Julio Haji MD; [facility] Active Problems & Conditions - Joint Pain, Localized in the Right Wrist History of Present Illness Called patient for phone follow up after left carpal tunnel release with ultrasound guidance. Patient states that she is doing well. Her wound has healed without incident. She states that her preoperative nighttime symptoms have completely gone away. Her daytime symptoms have also improved she has improved numbness and tingling compared to her preoperative status now she only has some intermittent paresthesias in the tips of her fingers. We talked at length about this, she had severe carpal tunnel syndrome prior to surgery which was noted on her EMG I explained that full recovery of the nerve can take up to a year and in some cases full sensation is not possible but her symptoms should continue to improve. She will monitor them and contact us on an as-needed basis if she has any concerns. Current Medication - Cephalexin 500 MG Oral [...] Eruption of skin Family History Maternal: Cancer Care Team - PCP NO
--- OUTSIDE RECORDS SUMMARY | 2024-08-23 10:58 | XMS_ITS ---
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, [facility] Assessments Includes: Assessments for all patient encounters No Assessments Recorded Medical Equipment - Implanted Devices Includes: Current and historical Devices No Medical Equipment Recorded Medications Includes: Current and historical Medications Current Medications (continue as prescribed) Cephalexin 500 MG Oral Capsule 04/19/2024 Provider: Julio Haji MD Diagnosis: 1 tablet four times a dayTAK E FIRST DOSE 1 HOUR PRIOR TO PROCEDURE Last Documented On 4 11:28AM By Bess Barreto ; [facility], [facility] Meloxicam 15 MG Oral Tablet 04/19/2024 Provider: Julio aHji MD Diagnosis: take 1 tablet once a dayBEGI N AFTER COMPLETION OF DOSE PACK Last Documented On 4 11:28AM By Bess Barreto ; [facility], [facility] Medrol 4 MG Oral Tablet Therapy Pack 04/19/2024 Prov ider: Julio Haji MD Diagnosis: use as directed Last Documented On 4 11:28AM By Bess Barreto ; [facility], [facility] Past Medications on file dexAMETHasone Sodium Phospha te 4 MG/ML Injection Solution 01/21/2024 - 02/20/2024 Provider: Robbie gould PA-C Diagnosis: use as directed; to be used by Physical Therapy Last Documented On 1:39PM By Loretta Ernandez ; [facility], [facility] Medications Administered Includes: Administered Medications in patient's chart No Administered Medications Recorded Vital Signs Includes: Vital Signs from 08/24/2023 through 08/23/2024 Vital Name 06/02/2024 01:56P 03/30/2024 04:05P 03/22/2024 08:49A 02/17/2024 04:07P 01/06/2024 03:10P Height (in) 65 65 65 65 65 Weight (lb) 135 135 135 135 135 Body Mass Index 22.5 22.5 22.5 22.5 22.5 Body Surface Area 1.7 1.7 1.7 1.7 1.7 Note: MG KL KL KL KL Last Documented: On 06/02/2024 1:56PM ; [facility], [facility] On 03/30/2024 4:05PM ; [facility], [facility] On 03/22/2024 8:49AM ; [facility], [facility] On 02/17/2024 4:07PM ; [facility], [facility] On 01/06/2024 3:10PM ; [facility], [facility] Results Includes: Results from 08/24/2023 through 08/23/2024 No Results Recorded For Specified Dates History of Present Illness History of Present Illness not supported for this document type No History of Present Illness Recorded Social History Description Last Updated Caffeine use 06/02/2024 Last Documented On 5 8:51AM ; [facility] Exercising regularly 06/02/2024 Last Documented On 5 8:51AM ; [facility] No recent change in diet 06/02/2024 Last Documented On 5 8:51AM ; [facility] Not a current smoker. 06/02/2024 Last Documented On 5 8:51AM ; [facility] Not using alcohol 06/02/2024 Last Documented On 5 8:51AM ; [facility] Not using drugs 06/02/2024 Last Documented On 5 8:51AM ; [facility] Smoking Status Unknown Procedures and Surgical History Includes: Procedures from 08/24/2023 through 08/23/2024 Procedures Code Diagnosis Performing Provider Service Location Service Date [facility] (Distinct procedure) 01924 Pain in right wrist Jany Pulido OT [facility] 05/13/2024 Last Documented On 5 1:42PM ; [facility], [facility] MANUAL THERAPY 10753 Pain in right wrist Jany Pulido OT [facility] 05/13/2024 Last Documented On 5 1:42PM ; [facility] NEUROMUSCULAR REEDUCATION 80055 Pain in right wrist Jany Pulido OT [facility] 05/13/2024 Last Documented On 5 1:42PM ; [facility] THERAPEUTIC EXERCISES 52480 Pain in right wrist Jany Pulido OT [facility] 05/13/2024 Last Documented On 5 1:42PM ; [facility], [facility] NEUROMUSCULAR REEDUCATION 80387 Pain in right wrist Jany Pulido OT [facility] 05/06/2024 Last Documented On 4 8:44AM ; [facility] THERAPEUTIC EXERCISES 22689 Pain in right wrist Jany Pulido OT [facility] 05/06/2024 Last Documented On 4 8:44AM ; [facility], [facility] THERAPEUTIC ACTIVITIES 19376 Pain in right wrist Jany Pulido OT [facility] 05/06/2024 Last Documented On 4 8:44AM ; [facility] MANUAL THERAPY 57055 Pain in right wrist Jany Pulido OT [facility] 05/06/2024 Last Documented On 4 8:44AM ; [facility] THERAPEUTIC EXERCISES 96105 Carpal tunnel syndrome, left upper limb Jany Pulido OT [facility] 04/27/2024 Last Documented On 4 1:17PM ; [facility], [facility] NEUROMUSCULAR REEDUCATION 31458 Carpal tunnel syndrome, left upper limb Jany Pulido OT [facility] 04/27/2024 Last Documented On 4 1:17PM ; [facility], [facility] MANUAL THERAPY 11584 Carpal tunnel syndrome, left upper limb Jany Pulido OT [facility] 04/27/2024 Last Documented On 4 1:17PM ; [facility], [facility] THERAPEUTIC ACTIVITIES 14308 Carpal tunnel syndrome, left upper limb Jany Pulido OT [facility] 04/27/2024 Last Documented On 4 1:17PM ; [facility], [facility] THERAPEUTIC EXERCISES 11882 Carpal tunnel syndrome, left upper limb Jany Pulido OT [facility] 04/22/2024 Last Documented On 4 8:41AM ; [facility], [facility] MANUAL THERAPY 63177 Carpal tunnel syndrome, left upper limb Jany Pulido OT [facility] 04/22/2024 Last Documented On 4 8:41AM ; [facility], [facility] THERAPEUTIC ACTIVITIES 15390 Carpal tunnel syndrome, left upper limb Jany Pulido OT [facility] 04/22/2024 Last Documented On 4 8:41AM ; [facility], [facility] 94923 Carpal tunnel syndrome, left upper limb Jany Pulido OT [facility] 04/22/2024 Last Documented On 4 8:41AM ; [facility] DECOMPRESSION MEDIAN NERVE AT CARPAL (LEFT) 30563 Carpal tunnel syndrome, left upper limb Julio Haji MD [facility] 04/20/2024 Last Documented On 4 10:35AM ; [facility], [facility] ULTRASOUND THERAPY 72820 Carpal tunnel syndrome, left upper limb Kate Green OT [facility] 04/12/2024 Last Documented On 4 9:35AM ; [facility], [facility] MANUAL THERAPY 94139 Carpal tunnel syndrome, left upper limb Kate Green OT [facility] 04/12/2024 Last Documented On 4 9:35AM ; [facility], [facility] THERAPEUTIC EXERCISES 57451 Carpal tunnel syndrome, left upper limb Kate Green OT [facility] 04/12/2024 Last Documented On 4 9:35AM ; [facility], [facility] Nerve Conduction Studies; 5-6 studies 29959 Carpal tunnel syndrome, left upper limb Julio Haji MD [facility] 03/30/2024 Last Documented On 4 3:29PM ; [facility], [facility] Needle EMG, complete, five or more muscles 66228 Carpal tunnel syndrome, left upper limb Julio Haji MD [facility] 03/30/2024 Last Documented On 4 3:29PM ; [facility], [facility] Ultrasound,extremity,nonvasc ular,real-time,with image limit (LEFT) 23541 Carpal tunnel syndrome, left upper limb Julio Haji MD [facility] 03/22/2024 Last Documented On 4 12:46PM ; [facility], [facility] Injection, betamethasone acetate 6mg per cc and betamethason J0702 Pain in right wrist Julio Haji MD [facility] 02/17/2024 Last Documented On 4 12:19PM ; [facility], [facility] INJ TENDON SHEATH/LIGAMENT (RIGHT) 30259 Pain in right wrist Julio Haji MD [facility] 02/17/2024 Last Documented On 4 12:19PM ; [facility], [facility] ULTRASOUND THERAPY 18597 Pain in right wrist Jany Pulido OT [facility] 02/12/2024 Last Documented On 4 9:56AM ; [facility], [facility] MANUAL THERAPY 86992 Pain in right wrist Jany Pulido OT [facility] 02/12/2024 Last Documented On 4 9:56AM ; [facility], [facility] THERAPEUTIC EXERCISES 52268 Pain in right wrist Jany Pulido OT [facility] 02/12/2024 Last Documented On 4 9:56AM ; [facility] THERAPEUTIC EXERCISES 70000 Pain in right wrist Jany Mackmings OT [facility] 01/29/2024 Last Documented On 4 6:14PM ; [facility] ULTRASOUND THERAPY 06628 Pain in right wrist Jany Mackmings OT [facility] 01/29/2024 Last Documented On 4 6:14PM ; [facility], [facility] 19038 Pain in right wrist Jany Mackmings OT [facility] 01/29/2024 Last Documented On 4 6:14PM ; [facility] MANUAL THERAPY 03005 Pain in right wrist Jany Mackmings OT [facility] 01/29/2024 Last Documented On 4 6:14PM ; [facility] THERAPEUTIC EXERCISES 83777 Pain in right wrist Kate Green OT [facility] 01/23/2024 Last Documented On 4 10:22AM ; [facility] ULTRASOUND THERAPY 97224 Pain in right wrist Ktae Green OT [facility] 01/23/2024 Last Documented On 4 10:22AM ; [facility] ELECTRIC CURRENT THERAPY 38695 Pain in right wrist Kate Green OT [facility] 01/23/2024 Last Documented On 4 10:22AM ; [facility] MANUAL THERAPY 58028 Pain in right wrist Kate Green OT [facility] 01/23/2024 Last Documented On 4 10:22AM ; [facility] ULTRASOUND THERAPY 70432 Pain in right wrist Kate Green OT [facility] 01/16/2024 Last Documented On 4 11:22AM ; [facility] MANUAL THERAPY 53797 Pain in right wrist Kate Green OT [facility] 01/16/2024 Last Documented On 4 11:22AM ; [facility], [facility] THERAPEUTIC EXERCISES 22440 Pain in right wrist Kate Green OT [facility] 01/16/2024 Last Documented On 4 11:22AM ; [facility], [facility] OT Eval - High Complexity 09764 Pain in right wrist Kate Green OT [facility] 01/09/2024 Last Documented On 4 2:02PM ; [facility], [facility] MANUAL THERAPY 53968 Pain in right wrist Kate Green OT [facility] 01/09/2024 Last Documented On 4 2:02PM ; [facility], [facility] SELF CARE MNGMENT TRAINING 24734 Pain in right wrist Kate Green OT [facility] 01/09/2024 Last Documented On 4 2:02PM ; [facility], [facility] ULTRASOUND THERAPY 34874 Pain in right wrist Kate Green OT [facility] 01/09/2024 Last Documented On 4 2:02PM ; [facility], [facility] Wrist hand orthosis, without joints, may include soft interf (RIGHT) L3906 Pain in right wrist Katja Duncan OT [facility] 01/06/2024 Last Documented On 4 2:15PM ; [facility], [facility] X-RAY EXAM OF WRIST 3-5 VIEWS (RIGHT) 15885 Pain in right wrist Julio Haji MD [facility] 01/06/2024 Last Documented On 4 10:03AM ; [facility], [facility] MRI JOINT UPR EXTREM W/O DYE (RIGHT) 15588 Pain in right wrist Nadir Ziegler MD [facility] 11/25/2023 Last Documented On 4 6:09PM ; [facility], [facility] MRI UPPER EXTREMITY W/O DYE (RIGHT, Distinct procedure) 27367 Pain in right arm Nadir Ziegler MD [facility] 11/25/2023 Last Documented On 4 10:47AM ; [facility], [facility] Surgical History Last Updated History of hysterectomy 06/02/2024 Last Documented On 5 8:51AM ; [facility] Medical History Includes: Medical History in patient's chart Description Last Updated Past medical history non-contributory Last Documented On 5 8:51AM ; [facility] Family History Includes: Family History in patient's chart Description Last Updated Maternal history of family history of ca ncer 06/02/2024 Last Documented On 5 8:51AM ; [facility] Review of Systems Review of Systems not supported for this document type No Review of Systems Recorded Mental Status Description No anxiety Functional Status No Functional Status Recorded Physical Exam Physical Exam not supported for this document type No Physical Exam Recorded Allergies Includes: Active, inactive, and resolved Allergies Substance Type Reaction Onset Date Resolved Date Statu s Sulfa Antibiotics Allergy Skin Rashes / Eruption of skin 01/06/2024 Active Last Documented On 5 1:55PM ; [facility] Encounters Includes: Encounters from 08/24/2023 through 08/23/2024 Encounter Provider Location Date Check-In Time Check-Out Time Diagnosis WC FOLLOW UP/EST Robbie Leon PA-C [facility] 06/02/19 1:29PM 2:38PM Phone Call Julio Haji MD [facility] 04/30/20 6:53AM 8:04AM [facility] Julio Haji MD Surgery 04/20/20 8:48AM 03/30/2024 11:59PM [facility] Julio Haji MD 04/20/20 24 03/30/2024 9:00AM 03/30/2024 11:59PM WC FOLLOW UP/EST Robbie Leon PA-C [facility] 03/30/20 3:52PM 4:28PM EMG [facility] 03/30/20 24 11:48AM 03/22/2024 11:59PM NEW PROBLEM/EST PT Robbie Leon PA-C [facility] 03/22/20 24 8:39AM 9:24AM WORK COMP Robbie Leon PA-C [facility] 02/17/20 4:00PM 4:35PM WC NEW PATIENT Robbie Leon PA-C [facility] 01/06/20 3:00PM 3:56PM Intake Robbie Leon PA-C 01/06/2011/25/2023 11:27AM 11/25/2023 11:59PM [facility] 11/25/19 4:47PM 5:31PM MRI [facility] 11/25/19 4:46PM 5:31PM Insurance Includes: Active Insurance Policies Plan Name Member ID Group # Subscriber Relationship Effect rosie Dates 1 - BCBS [facility] [id number] Tsering Shelley Self 2 - JESSICA [id number] Tsering Shelley [facility] 05/27 - Unknown 3 - [employer] [id number] Tsering Shelley [facility] 05/27/2023 - Unknown 4 - MedRisk [id number] Tsering Shelley [facility] 2023 - Unknown Clinical Notes Includes: Signed Clinical Notes starting from 04/25/2022 * Progress note Date Encounter Last Documented by 06/02/2024 FOLLOW UP/EST Last documented on 06/03/2024; 8:51 AM, Robbie Leon PA-C; [facility], [facility] Active Problems & Conditions - Joint Pain, [...] and omissions. Care Team - PCP NO * Progress note Date Encounter Last Documented by 04/30/2024 Phone Call Last documented on 04/30/2024; 12:47 PM, Julio Haji MD; [facility], [facility] Active Problems & Conditions - Joint Pain, [...] Maternal: Cancer Care Team - PCP NO * Progress note Date Encounter Last Documented by 03/30/2024 WC FOLLOW UP/EST Last documented on 03/30/2024; 4:39 PM, Robbie Leon PA-C; [facility], [facility] Active Problems & Conditions - Joint Pain, Localized in the Right Wrist Chief Complaint The Chief Complaint is: Right wrist pain. Referred Here Referred by. History of Present Illness Tsering Karsten is a 53 year old female. - Allergy list reviewed - Problem list reviewed - Medication list reviewed - Previous history of new onset pain 03/22/2024 Injury is not work related or an automotive accident. using retractable knife - Pain is occasional (25% of the time) - Pain is throbbing - Pain is dull, aching - Patient pain level from 1-10: 8 - No previous treatment. [facility] - - Review of medications documented 53-year-old Female here for follow-up of her right ECU tendinitis. She had an injection in the ECU tendon sheath last visit. She feels that this significantly helped her pain. She was started to wean out of the brace some around the house in his noticed small amount of discomfort on the ulnar side of the wrist. She has been working with a brace in his tolerating that well. Referral to therapy was also given at last visit. She states that worker's compensation denied that request. The patient was also here for follow-up after a left upper extremity EMG. This is under her primary insurance, not a worker's comp claim. The patient was chronic left hand pain numbness and tingling and nocturnal symptoms for a number of years. She has failed bracing. She has an enlarged median nerve. EMG was performed prior to this appointment. Current Medication - None Past Medical/Surgical History Past medical history non-contributory. [...] allergic reaction. Physical Findings - Vitals taken 03/30/2024 04:05 pm KL Height 65 in Weight 135 lbs Body [...] light touch distally in all nerve distributions There is tenderness to palpation over the 6th dorsal compartment without evidence of ECU subluxation Flexion: 90 degrees Extension: 70 degrees Pronation: 90 degrees Supination: 90 degrees Strength: 5/5 wrist flexion, 5-/5 extension, 5/5 supination, 5/5 pronation. LEFT WRIST/HAND: Able to make a full composite fist Able to fully flex and extend all fingers Hand is warm and well perfused Diminished sensation light touch median nerve distribution Carpal compression test is positive Tinel of the median nerve at the wrist is positive There is no triggering of digits CMC is nontender to palpation. CMC grind is negative There is no tenderness to palpation over the dorsal compartments. Finklesteins is negative Flexion: 90 degrees Extension: 70 degrees Pronation: 90 degrees Supination: 90 degrees Strength: 5/5 wrist flexion, 5/5 extension, 5/5 supination, 5/5 pronation. User Defined 5 53-year-old Female with improving right ECU tendinitis. The patient had a good response to the injection however she was still mildly tender over the 6th dorsal compartment. I do think she would benefit for some therapy now that her symptoms have settled down. Worker's compensation denied this previous request. I will place another order for OT evaluate and treat. Continue work restrictions must wear brace avoid painful activity. I will have her follow up in 6 weeks for clinical recheck. With respect to her left carpal tunnel syndrome, which is under her primary insurance and not a worker's comp claim. She was severe left carpal tunnel syndrome on EMG. She was failed bracing. She continues to have nocturnal symptoms. It is affecting her quality of life. I am recommending a left ultrasound-guided carpal tunnel release by Dr. Haji. Discussed the procedure in detail including expected postoperative course. The patient agrees to proceed. Surgical vs. non-surgical treatment options (cortisone injection, bracing) were discussed with the patient. The risks and benefits of each were discussed in detail. With regard to surgery the major risks, to include but not limited to bleeding, infection, nerve and blood vessel injury, tendon injury, residual pain, numbness, stiffness, blood clots and risks related to anesthesia including were discussed. We also discussed that in cases of carpal tunnel syndrome where profound numbness is the primary symptom, normal sensation may not return immediately and in many cases, minimal sensory improvement is appreciated. We discussed the need to observe nerve recovery patiently in the postoperative period. After this discussion, the patient elected to proceed with a minimally invasive ultrasound guided carpal tunnel release, with the understanding that in some rare cases there is the need to convert to an open carpal tunnel release. The patient will be scheduled for surgery at their earliest convenience. Counseling/Education - Tobacco non-user - Use of tobacco assessment performed Plan StartCited - Other Therapy/Occupational Therapy: Wrist Instructions: See PT order attached EndCited Notes This dictation was done with voice recognition software and may contain errors and omissions. Care Team - PCP NO * Progress note Date Encounter Last Documented by 03/22/2024 NEW PROBLEM/EST PT Last document ed on 03/22/2024; 12:59 PM, Robbie Leon PA-C; [facility], [facility] Active Problems & Conditions - Joint Pain, Localized in the Right Wrist Chief Complaint The Chief Complaint is: Right wrist pain. Referred Here Referred by. History of Present Illness August Karsten is a 53 year old female. - Allergy list reviewed - Problem list reviewed - Medication list reviewed - Previous history of new onset pain 03/22/2024 Injury is not work related or an automotive accident. using retractable knife - Pain is occasional (25% of the time) - Pain is throbbing - Pain is dull, aching - Patient pain level from 1-10: 8 - No previous treatment. [facility] - - Review of medications documented 53-year-old female here for evaluation of her left hand pain numbness and tingling. The patient was had symptoms for over 3 months. Over the last 2 or 3 weeks her symptoms have gotten progressively worse. She denies any trauma or mechanism. She was describes pain numbness and tingling mostly in her thumb but does also involve her index, middle and ring fingers. She never has symptoms in the small finger. Symptoms are worse with driving and also at night. She was tried wearing a brace at night without any relief. She does have a history of a right open carpal tunnel release done several years ago. She was had an EMG of the upper extremities done over 5 years ago. Denies any left sided carpal tunnel injections or surgery. Current Medication - None Past Medical/Surgical History Past medical history non-contributory. [...] allergic reaction. Physical Findings - Vitals taken 03/22/2024 08:49 am KL Height 65 in Weight 135 lbs Body [...] Normal gait without assistive devices. Station normal. LEFT WRIST/HAND: Able to make a full composite fist Able to fully flex and extend all fingers Hand is warm and well perfused Diminished sensation light touch median nerve distribution. Carpal compression test is positive Tinel of the median nerve at the wrist is positive Cubital compression test is equivocal Tinel of the ulnar nerve at the elbow is equivocal No thenar atrophy or weakness There is no triggering of digits CMC is nontender to palpation. CMC grind is negative There is no tenderness to palpation over the dorsal compartments. Finklesteins is negative Flexion: 90 degrees Extension: 70 degrees Pronation: 90 degrees Supination: 90 degrees Strength: 5/5 wrist flexion, 5/5 extension, 5/5 supination, 5/5 pronation. User Defined 5 53-year-old female with left carpal tunnel syndrome. She was a mildly enlarged nerve on ultrasound, see report for details. I am able to reproduce her symptoms with carpal tunnel provocative testing. She was failed bracing in her symptoms are getting worse. She was nocturnal symptoms. Like to investigate the patient was symptoms further with an EMG of the left upper extremity. She will follow up with me after the nerve study is complete. Also encouraged the patient to try and find the report from her old EMG so we can compare the findings to her updated nerve study Counseling/Education - Tobacco non-user - Use of tobacco assessment performed Plan StartCited - Other Procedure/Tests: BGO EMG Instructions: LUE EndCited Notes This dictation was done with voice recognition software and may contain errors and omissions. Care Team - PCP NO * Progress note Date Encounter Last Documented by 02/17/2024 WORK COMP Last documented on 02/17/2024; 4:53 PM, Robbie Miller; [facility], [facility] Active Problems & Conditions - Joint Pain, Localized in the Right Wrist Chief Complaint The Chief Complaint is: Right wrist pain. Referred Here Referred by. History of Present Illness August Karsten is a 53 year old female. - Symptoms worse w/ different movements. - Allergy list reviewed - Problem list reviewed - Medication list reviewed - Previous history of new onset pain 04/15/2023 Work Injury using retractable knife - Sharp pain Symptoms - Pain is occasional (25% of the time) - Pain is dull, aching - Patient pain level from 1-10: 8 - Yes, previous treatment. [facility] - - Review of medications documented 53-year-old female here for follow-up of her right ECU tendinitis. This is identified on an MRI. She was placed in a thermoplastic splint as well as referral to hand therapy. She has had symptoms since February 2023. She feels that she was no better no worse since last seen. Denies any new injury Current Medication - dexAMETHasone Sodium Phosphate 4 MG/ML Injection Solution use as directed; to be used by Physical Therapy, 30 days, 0 refills Past Medical/Surgical History Past medical history [...] allergic reaction. Physical Findings - Vitals taken 02/17/2024 04:07 pm KL Height 65 in Weight 135 lbs Body Mass Index 22.5 kg/m2 Body Surface Area 1.7 m2 . PHYSICAL EXAM: CONSTITUTIONAL: Well developed, well groomed, [...] light touch distally in all nerve distributions Tenderness to palpation over the 6th dorsal compartment No evidence of subluxing ECU He was pain with resisted wrist extension testing No tenderness in the ulnar fovea, ulnar styloid or DRUJ. Flexion: 90 degrees Extension: 70 degrees Pronation: 90 degrees Supination: 90 degrees Strength: 5/5 wrist flexion, 5/5 extension, 5/5 supination, 5/5 pronation. 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 The patient has not had any meaningful improvement despite splinting and hand therapy. Recommend a right ECU injection. She agrees to proceed. Work restrictions we will be continuing to avoid painful activity must wear brace. Follow up 6 weeks for clinical recheck. The risks and benefits of a right ECU injection were discussed. I answered all of the patient's questions and they verbally consented to the procedure. The skin over the 6th dorsal compartment was prepped with isopropyl alcohol and allowed to dry. Utilizing a sterile needle, I injected 1/2 cc of betamethasone and 1/2 cc of 1% lidocaine. The needle was withdrawn and the injection site was dressed with a sterile Band-Aid. The patient tolerated the procedure well without any apparent complication. Post-injection instructions were discussed. Previous Tests Imaging: X-Ray: An X-ray was performed 10/11/2023 [facility]. MRI Scan: An MRI was performed 11/10/2023 [facility]. Counseling/Education - Tobacco non-user - Use of tobacco assessment performed Plan StartCited - Other Therapy/Occupational Therapy: Wrist Instructions: See PT order attached EndCited Notes This dictation was done with voice recognition software and may contain errors and omissions. Care Team - PCP NO * Progress note Date Encounter Last Documented by 01/06/2024 WC NEW PATIENT Last documented on 01/22/2024; 8:43 AM, Robbie Leon PA-C; [facility] Active Problems & Conditions - Joint Pain, Localized in the Right Wrist Chief Complaint The Chief Complaint is: Right wrist pain. Referred Here Referred by. History of Present Illness August Karsten is a 53 year old female. - Symptoms worse w/ different movements. - Allergy list reviewed - Problem list reviewed - Medication list reviewed - Previous history of new onset pain 04/15/2023 Work Injury using retractable knife - Sharp pain Symptoms - Pain is occasional (25% of the time) - Pain is dull, aching - Patient pain level from 1-10: 8 - Yes, previous treatment. [facility] - - Review of medications documented 53-year-old female here for evaluation of her right wrist pain. Symptoms started March 2023. She works at 3:00 a.m., this is a work-related injury. She states that started whenever she had to use a new retractable scissor at work. She she describes ulnar-sided wrist pain. Pain was pretty intense when it started. She has had off and on ulnar-sided wrist pain since then. She has seen a chiropractor for this. She has tried an [id number] wrist brace. She feels that her pain is some better but still has some pain especially with some gripping and twisting activities. Past Medical/Surgical History Past medical history non-contributory. [...] allergic reaction. Physical Findings - Vitals taken 01/06/2024 03:10 pm KL Height 65 in Weight 135 lbs Body [...] light touch distally in all nerve distributions Tenderness to palpation ulnar fovea Tenderness to palpation sixth dorsal compartment No evidence of subluxing ECU No tenderness over the DRUJ Flexion: 90 degrees Extension: 70 degrees Pronation: 90 degrees Supination: 90 degrees Strength: 5/5 wrist flexion, 5/5 extension, 5/5 supination, 5/5 pronation. User Defined 5 Three-view x-ray of the right wrist shows no acute bony abnormality. Carpal alignment within normal limits. Mild Diffuse degenerative changes seen. 53-year-old female with intermittent right ulnar-sided wrist pain. This is a work-related injury. The patient's MRI shows a possible tear of the radial ulnar ligament and subluxation of the DRUJ. There is also subluxation of the ECU with surrounding tenosynovitis. There is also evidence of a 9 mm cystic lesion consistent with a ganglion over the dorsal radial carpus. Long conversation with the patient about her imaging findings and symptoms. The patient was not have any evidence of a snapping ECU tendon. She is tender to palpation in the ulnar fovea and over the 6th dorsal compartment. Patient was never been treated by a hand therapist. I am recommend a referral to OT for evaluation and treatment. I will also place her in a wrist extension thermoplastic splint fashioned by our OT department she states that she can not wear any brace at work that has metal in it. Work restrictions will be must wear splint and avoid painful activities. I will have her follow up in 6 weeks for clinical recheck. Previous Tests Imaging: X-Ray: An X-ray was performed 10/11/2023 [facility]. MRI Scan: An MRI was performed 11/10/2023 [facility]. Counseling/Education - Tobacco non-user - Use of tobacco assessment performed Plan StartCited - Other Therapy/Occupational Therapy: Wrist Instructions: See PT order attached dexAMETHasone Sodium Phosphate 4 MG/ML mL use as directed; to be used by Physical Therapy, 30 days, 0 refills EndCited Notes This dictation was done with voice recognition software and may contain errors and omissions. Care Team - PCP NO * Progress note Date Encounter Last Documented by 01/06/2024 Intake Last documented on 01/06/2024; 11:40 AM, Robbie Leon PA-C; [facility], [facility] Active Problems & Conditions - Joint Pain, Localized in the Right Wrist Chief Complaint The Chief Complaint is: Right wrist pain. Referred Here Referred by. History of Present Illness Tsering Karsten is a 53 year old female. - Symptoms worse w/ different movements. - Allergy list reviewed - Problem list reviewed - Medication list reviewed - Previous history of new onset pain 04/15/2023 Work Injury using retractable knife - Sharp pain Symptoms - Pain is occasional (25% of the time) - Pain is dull, aching - Patient pain level from 1-10: 8 - Yes, previous treatment. [facility] - - Review of medications documented Current Medication - None Past Medical/Surgical History Past medical history non-contributory. [...] Immunologic: No complaint of seasonal allergic reaction. Previous Tests Imaging: X-Ray: An X-ray was performed 10/11/2023 [facility]. MRI Scan: An MRI was performed 11/10/2023 [facility]. Counseling/Education - Tobacco non-user - Use of tobacco assessment performed Notes This dictation was done with voice recognition software and may contain errors and omissions. Care Team - PCP NO
--- OUTSIDE RECORDS SUMMARY | 2024-08-23 10:58 | XMS_ITS ---
Care Plan - [facility], [facility] Created on: August 23, 2024 KarstenAugust : 1970 Sex: Female Author Organization [facility] Address [address] [place] [address] Phone Care Team Providers Care Kiln Transfer Operator Name Role Phone Adithya POSEY, Julio Unavailable [phone] NO, PCP Unavailable Unavailable
--- OUTSIDE RECORDS SUMMARY | 2024-08-23 10:59 | XMS_ITS | Clinical Summary ---
Author Organization [facility] , [facility] Address [address] [place] [address] Phone Care Team Providers Care Alteration Hand Name Role Phone Adithya POSEY, Julio Unavailable [phone] NO, PCP Unavailable Unavailable Reason for Visit and Chief Complaint The Chief Complaint is: right wrist pain Problems Includes: Problems addressed during this encounter and other active Problems All Visits Onset Date Resolved Date Provider Condition S tatus Joint Pain, Localized in the Right Wrist 01/06/2024 Robbie Leon PA-C Active Last Documented On 4 11:39AM ; [facility], [facility] Plan of Treatment Pending Tests Order Diagnosis Results Due Ordering P rovider Therapy - Occupational Therapy Wrist 03/30 Robbie Leon PA-C Last Documented On 4 4:37PM ; [facility], [facility] Procedure/Tests BGO EMG 04/05/24 Robbie gould PA-C Last Documented On 4 9:45AM ; [facility], [facility] Assessments Includes: Assessments from this encounter Findings 53-year-old Female with improving right ECU tendinitis. [...] up in 6 weeks for clinical recheck. - Last Documented On 03/30/2024 4:39PM ; [facility], [facility] With respect to her left carpal tunnel [...] postoperative course. The patient agrees to proceed. - Last Documented On 03/30/2024 4:39PM ; [facility] Surgical vs. non-surgical treatment options (cortisone injection, [...] nerve recovery patiently in the postoperative period. - Last Documented On 03/30/2024 4:39PM ; [facility] After this discussion, the patient elected to proceed with a minimally invasive ultrasound guided carpal tunnel release, with the understanding that in some rare cases there is the need to convert to an open carpal tunnel release. - Last Documented On 03/30/2024 4:39PM ; [facility] The patient will be scheduled for surgery at their earliest convenience. - Last Documented On 03/30/2024 4:39PM ; [facility] Medical Equipment - Implanted Devices Includes: Current Devices No Medical Equipment Recorded Medications Includes: Medications discussed during this encounter and other current Medications Current Medications (continue as prescribed) Cephalexin 500 MG Oral Capsule 04/19/2024 Provider: Julio Haji MD Diagnosis: 1 tablet four times a dayTAK E FIRST DOSE 1 HOUR PRIOR TO PROCEDURE Last Documented On 11:28AM By [facility] Meloxicam 15 MG Oral Tablet 04/19/2024 Provider: Julio Haji MD Diagnosis: take 1 tablet once a dayBEGI N AFTER COMPLETION OF DOSE PACK Last Documented On 11:28AM By Bess Ott [facility], [facility] Medrol 4 MG Oral Tablet Therapy Pack 04/19/2024 Prov ider: Julio Haji MD Diagnosis: use as directed Last Documented On 11:28AM By Bess Barreto ; [facility] Past Medications on file dexAMETHasone Sodium Phospha te 4 MG/ML Injection Solution 01/21/2024 - 02/20/2024 Provider: Robbie gould PA-C Diagnosis: use as directed; to be used by Physical Therapy Last Documented On 1:39PM By Loretta Ernandez ; [facility], [facility] Medications Administered Includes: Administered Medications from this encounter No Administered Medications Recorded Vital Signs Includes: Vital Signs from this encounter Vital Name 03/30/2024 04:05P Height (in) 65 Weight (lb) 135 Body Mass Index 22.5 Body Surface Area 1.7 Note: KL Last Documented: On 03/30/2024 4:05PM ; [facility], [facility] Results Includes: Results discussed during this encounter No Results Recorded For Specified Dates History of Present Illness Includes: History of Present Illness from this encounter ROHAN Shelley is a 53 year old female. [...] from 1-10: 8 - No previous treatment. [facility] - - Review of medications documented 53-year-old [...] EMG was performed prior to this appointment. Social History Description Last Updated Caffeine use 03/30/2024 Last Documented On 4 4:39PM ; [facility], [facility] Exercising regularly 03/30/2024 Last Documented On 4 4:39PM ; [facility], [facility] No recent change in diet 03/30/2024 Last Documented On 4 4:39PM ; [facility], [facility] Not a current smoker. 03/30/2024 Last Documented On 4 4:39PM ; [facility], [facility] Not using alcohol 03/30/2024 Last Documented On 4 4:39PM ; [facility], [facility] Not using drugs 03/30/2024 Last Documented On 4 4:39PM ; [facility], [facility] Smoking Status Unknown Procedures and Surgical History Surgical History Last Updated History of hysterectomy 03/30/2024 Last Documented On 4 4:39PM ; [facility], [facility] Medical History Includes: Medical History addressed during this encounter Description Last Updated Past medical history non-contributory Last Documented On 4 4:39PM ; [facility], [facility] Family History Includes: Family History addressed during this encounter Description Last Updated Maternal history of family history of ca ncer 03/30/2024 Last Documented On 4 4:39PM ; [facility], [facility] Review of Systems Includes: Review of Systems [...] Active Last Documented On 5 1:55PM ; [facility] Encounters Encounter Provider Location Date Check-In Time Check-Out Time Diagnosis WC FOLLOW UP/EST Robbie Leon PA-C [facility] 03/30/20 24 3:52PM 4:28PM Insurance Includes: Active Insurance Policies Plan Name Member ID Group # Subscriber Relationship Effect rosie Dates [facility] - [id number] Tsering Shelley Self 2 - [id number] Tsering Shelley Self 05/27 - Unknown 3 - [employer] [id number] Tsering Shelley [facility] 05/27/2023 - Unknown 4 - [employer] [id number] Tsering Shelley Self 2023 - Unknown Clinical Notes Includes: Clinical Notes from this encounter * Progress note Date Encounter Last Documented by 03/30/2024 WC FOLLOW UP/EST Last documented on 03/30/2024; 4:39 PM, Robbie Leon PA-C; [facility] Active Problems & Conditions - Joint Pain, Localized in the Right Wrist Chief Complaint The Chief Complaint is: Right wrist pain. Referred Here Referred by. History of Present Illness Tsering Shelley is [...] from 1-10: 8 - No previous treatment. [facility] - - Review of medications documented 53-year-old [...]
== END 2024-08-20 23:59 | disposition home or self-care (01) ==
LOC: LAB.DROPOF 08-23 10:56
PROVIDERS: PCP Nurse Practitioner Family; Visit Provider Nurse Practitioner Family
DX: R30.0 Dysuria (principal)
CPT/HCPCS: 87086

== ENCOUNTER 2024-10-01 15:35 | Outpatient (CLI) | payer BC, SELFPAY ==
--- OUTSIDE RECORDS SUMMARY | 2024-10-05 11:21 | XMS_ITS | Data Portability ---
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 Her right lateral epicondylitis symptoms have improved and we will continue to monitor. Her left carpal tunnel symptoms are minimal at this time. Plan to continue to monitor and treat these is well-perfused they worsen over time. Treatment options were again discussed that patient would like to do for it at this time with right surgical carpal tunnel release. Patient will be scheduled for right endoscopic carpal tunnel release at her convenience. Risk and benefits of the surgical procedure were explained to the patient in clinic today, including but not limited to incomplete symptom relief, recurrence, need for additional procedures, stiffness, damage to surrounding tissues/structur es/nerves/vessel s, wound complications, and infection. Patient expressed understanding and all questions were answered to the patient's satisfaction. [email or web address] Not available 02/12/2019 17:51:11 03/04/2019 03/04/2019 Patient can gradually resume activity with the hand as tolerated at this time. I discussed scar massage with patient in clinic today. Patient will follow-up in 4 weeks for repeat postoperative assessment, but will call in the interim with any additional questions or concerns. Plan to continue to monitor the left hand and treat as needed should symptoms worsen over time. [email or web address] Not available 03/04/2019 15:55:25 04/02/2019 04/02/2019 Patient can continue activity with the hand as tolerated at this time. Continue scar massage. Patient will follow-up in 6 weeks for final postoperative assessment, but will call in the interim with any additional questions or concerns. Plan to continue to monitor the left hand and treat as needed should symptoms worsen over time. [email or web address] Not available 04/02/2019 15:53:09 Plan of Treatment Reminders Order Date Submit Date Provider Last Modified By Organization Details Last Modified Time Details Appointments None recorded. Lab None recorded. Referral None recorded. Procedures None recorded. Surgeries None recorded. Imaging None recorded. Medication Orders mupirocin 2 % topical ointment 2020 021 [facility], [address], [address], 14:00:51 Patient TargetsNo targets recorded. Patient Instructions Encounter Date Encounter Id Patient Instructions Last Modified By Organization Details Last Modified Time 04/19/2021 [id number] It was a rosemary childers evaluating this patient today. Patient reports: Left intermittent nasal sore ongoing for over 1 year, at least monthly, posterior rhinorrhea, chronic cough Examination/workup suggests: No concerning ulcerations or masses on careful exam anteriorly She declined nasal endoscopy [] We discussed my recommendation for: Mupirocin ointment x14 days Deep sea spray sample provided Consider allergy testing Recheck 1 month to ensure resolution of symptoms. We reviewed the pertinent anatomy and pathophysiology and all questions were answered. Thank you for inviting me to participate in the care of this patient today. [email or web address] Not available 04/19/2021 14:03:28 Reason for Referral None Reported. Procedures Surgical History Date Name Laterality Status Provider Name and Address Organization Details Recorded Time 02/23/20 19 Op Note completed MAGDALENA MORENO MD [address] [place], [address], [facility] 02/22/2019 08:30:31 hysterectomy completed [facility] 04/19/2021 13:33:54 Carpal tunnel surgery completed [facility] 04/19/2021 13:34:04 Imaging Results None recorded. Procedure Notes None recorded. Medical Equipment None Reported. Allergies Allergen ID Allergen Name Allergen Category Reaction Reaction Severity Criticality Documentation Date Start Date Code Code System Note Provider Name and Address Organization Details Recorded Time 622761 Substance with sulfonami de structure and antibacte rial mechanism of action (substanc e) medicatio n Not available Not available Not available 09/01/2018 87283 8003 SNOMED Mary Morocho [facility] 9 14:02:06 Medications Name Sig Start Date Stop Date Status Note LastModified by Organization Details LastModified Time tramadol 50 mg tablet TAKE 1 TABL PO Q 4-6 HRS PRN FOR UNCONTROL LED PAIN 03/04 completed Not Available Not Available Not Available meloxicam 7.5 mg tablet TAKE 1 TABLE PO QD WITH FOOD REGARDLES S OF PAIN LEVEL FOR 1 WEEK. THEN TAKE 1 TABLET PO QD ONLY PRN FOR PAIN RELIEF THEREAFTE R 04/02 completed Not Available Not Available Not Available Neurontin 100 mg capsule TAKE 1 CAPSULE PO QHS FOR 1 WEEK 03/04 completed Not Available Not Available Not Available mupirocin 2 % topical ointment APPLY GENEROUSL Y WITH CLEAN QTIP TO LEFT NOSTRIL 2-3 TIMES DAILY FOR 14 DAYS. 2020 active Not Available Not Available Not Avai lable prednisone 5 mg tablets in a dose pack Take 1 dose pk by oral route. 02/12 completed Not Available Not Available Not Available Vitals Date Recorded Body height Body mass index (BMI) Body weight Provider Name and Address Organization Details Last Updated DateTime 02/12/2019 165.1 cm 22.3 kg/m2 95245.38 g Francia Jeffery [facility] 02/12/2019 14:33:43 Date Recorded Body height Body mass index (BMI) Body weight Provider Name and Address Organization Details Last Updated DateTime 03/04/2019 165.1 cm 22.3 kg/m2 75936.38 g Francia Jeffery [facility] 03/04/2019 15:12:49 Date Recorded Body height Body mass index (BMI) Body weight Provider Name and Address Organization Details Last Updated DateTime 04/02/2019 165.1 cm 22.3 kg/m2 18103.38 g Myla Rios [facility] 04/02/2019 12:59:38 Date Recorded Body weight Body mass index (BMI) Body height Body temperature Respiratory rate Oxygen saturation Oxygen saturation in Arterial blood by Pulse oximetry Heart rate Systolic And Diastolic Provider Name and Address Organization Details Last Updated DateTime 1 47096.3 4 g 21.1 kg/m2 172.72 cm 98.1 [degF] 16 /min 98 % 98 % 70 /min 114/73 mm[Hg] Kita Love [facility] 1 13:37:15 Social History Question Answer Notes LastModified by [email or web address] Details LastModified Time Tobacco Smoking Status Never Smoker Mary Morocho [facility] 09/01/2018 14:02:24 What Is Your Level Of Caffeine Consumption? Moderate Information not available 09/01/2018 Which Of Your Hands Is Dominant? Right Information not available 09/01/2018 Marital Status Informatio n not available 09/01/2018 What Was The Date Of Your Most Recent Tobacco Screening? 04/19/2021 Information not available 04/19/2021 Has Tobacco Cessation Counseling Been Provided? No Information not available 04/19/2021 Have You Recently Traveled Abroad? No Information not available 04/19/2021 Sex: Unknown Functional Status Question Answer Note LastModified by [email or web address] Details LastModified Time Do you use any illicit or recreational drugs? No Information not available 09/01/2018 Do you or have you ever used any other forms of tobacco or nicotine? No Information not available 04/19/2021 What is your level of alcohol consumption? None Information not available 09/01/2018 Are you currently employed? Yes Information not available 04/02/2019 What is your occupation? [employer] Information not available 09/01/2018 Do you or have you ever used e-cigarettes or vape? Never used electronic cigarettes Information not available 04/02/2019 Mental Status None recorded. Family History Relationship Description Onset Age of this Age Resolved Age Notes LastModified by Organization Details LastModified Time Father No current problems or disability Not available 09/01 14:02:12 Mother No current problems or disability Not available 09/01 14:02:12 Medical History Condition Response Allergies/Hayfever N Anxiety/Depression N Other N Gout N Thyroid Disease N Kidney Stones N Heart Conditions N Hernia N Migraines N COPD N Glaucoma N Pneumonia N Skin Problems N Immune System Disorder N Anesthesia Complications N Heart Attack ([place]) N Mental Illness N Neurological Problems N Diabetes N Rheumatic Fever N Bleeding Disorder N Arthritis N Seizures/Epilepsy N Blood Clot N Tuberculosis N Genetic Disorder N AIDS/HIV N Cancer N Stroke N Asthma N Blood Thinners N Alcohol Overuse/Alcohol Abuse N Sleep Apnea N High Cholesterol N Liver Disease N Included as Review of Systems Y Hypertension N Osteoporosis N Kidney Disease N Gynecological HistoryNo gynecological history recorded. Obstetrics History GPAL:G 0 P 0 0 0 0 Past Encounters Encounter ID Performer Location Encounter Start Date Encounter Closed Date Diagnosis/Indication Diagnosis SNOMED-CT Code Diagnosis ICD10 Code Diagnosis Note [id number] MAGDALENA MORENO MD ORTHOPEDI [address] [place] [address] 09/01/2018 13:39:31 09/01/2018 15:44:52 Carpal tunnel syndrome 76407459 G56.01 G56.02 EMG/NCV (07/24/18) demonstrat ed moderate bilateral carpal tunnel syndrome. No evidence of radiculopa thy or peripheral neuropathy . Lateral epicondylitis 20 8093447 M77.11 [id number] MAGDALENA MORENO MD [facility] [address] [place] [address] 02/12/2019 14:31:12 02/15/2019 09:10:21 Carpal tunnel syndrome 95226971 G56.01 G56.02 EMG/NCV (07/24/18) demonstrat ed moderate bilateral carpal tunnel syndrome. No evidence of radiculopa thy or peripheral neuropathy . Lateral epicondylitis 20 2261700 M77.11 [id number] MAGDALENA MORENO MD SURGERY SCHEDULE [address] [place] [address] 02/22/2019 06:54:21 02/22/2019 06:57:39 [id number] MAGDALENA MORENO MD [facility] [address] [place] [address] 03/04/2019 14:38:00 03/04/2019 16:02:07 Carpal tunnel syndrome 03924516 G56.02 EMG/NCV (07/24/18) demonstrat ed moderate bilateral carpal tunnel syndrome. No evidence of radiculopa thy or peripheral neuropathy . status post right endoscopic carpal tunnel release (02/22/19) Lateral epicondylitis 20 6906486 M77.11 Postoperative care 74485 9007 Z48.89 1.5 weeks status post right endoscopic carpal tunnel release (02/22/19) [id number] MAGDALENA MORENO MD [facility]EDI [facility] [address] [place] [address] 04/02/2019 12:41:23 04/02/2019 13:46:51 Postoperative care 750763682 Z48.89 6 weeks status post right endoscopic carpal tunnel release (02/22/19) Carpal cornelius kathi syndrome 15728227 G56.02 EMG/NCV (07/24/18) demonstrat ed moderate bilateral carpal tunnel syndrome. No evidence of radiculopa thy or peripheral neuropathy . status post right endoscopic carpal tunnel release (02/22/19) Lateral epicondylitis 20 4691871 M77.11 [id number] EDA GOMES MD [place] [facility] CLOSED [address] [place] [address] 04/19/2021 13:24:04 04/19/2021 14:18:24 Nasal vestibulitis 58141578 J34.89 Suspect left (PT declined scope)-Pre scribe mupirocin ointment 2-3 times daily x14 days, recheck 1 month Posterior rhinorrhea 758 11112 R09.82 -Provided sample deep sea spray to use as needed. Chronic rhinitis 4794255 6 J31.0 -Discussed allergy testing, Revisit MQT next visit. Health Concerns Section Related Observation LastModified by Organization Detai ls LastModified Time None Recorded Concern Status LastModified by Organization Details LastModified Time None Recorded Advance Directives Directive None Recorded Payers Insurance Date Sequence Insurance Name Policy Number Policy Zapata Covered Member ID Zapata Member ID Guarantor Name 04/18/2021 1 [place] [id number] Tsering hSelley [id number] Tsering Shelley 05/14/2021 1 [place] [id number] August Karsten [id number] August Karsten Notes Date Note Type Note Provider Name and Address Organization Details Recorded Time 02/12/2019 text/html Hand SurgeryRepo rted bypatient.Hand Dominance:right Location:bilateral Severity:pain level 0/10 Duration:date of injury: 0 Previous Surgery:none Work Related:no Working:regular duty; [employer] Patient is currently in a:splint; right wrist only @ nightNotes:Pt returns for a recheck of the trever wrists and states she would like to discuss sx. Pt states pain and numbness are gettng worse. Patient reports approximately 60% improvement in her right lateral epicondylitis symptoms since initial visit, which are currently tolerable at this time. Presents back today to further discuss her right carpal tunnel symptoms. These have worsened since last visit as she is now developed some intermittent pain along the volar wrist and palm. Continues to report right much greater than greater than left hand numbness and tingling predominantly within the radial 4 digits. Symptoms are worse at night and wake her up from sleep, even with use of the splint. She does report some weakness in the hands as well. Currently her left hand is minimally symptomatic. MAGDALENA MORENO MD [facility] [place], [address], [facility] 02/12/2019 17:51:20 03/04/2019 text/html Hand SurgeryRepo rted bypatient.Hand Dominance:right Location:bilateral Severity:pain level 0/10 Duration:date of injury: 0 Previous Surgery:surgical procedure: (Right endoscopic carpal tunnel release); date (02-22-2019) Work Related:no Working:no; [employer] Patient is currently in a:splint; right wrist only @ nightNotes:Pt returns for a recheck of the right wrist and states that she is having some pain and states numbness. Pt states splinting at night. Patient reports improvement in preoperative numbness and tingling, but still with residual symptoms in the central 3 fingertips and occasionally along the ulnar border of her thumb. She does report some soreness in the palm, most predominantly over the thenar pillar. Left hand symptoms remain minimal at this time. [place], [address], [facility] 03/04/2019 15:55:33 04/02/2019 text/html Hand SurgeryRepo rted bypatient.Hand Dominance:right Location:right Severity:pain level 3/10 Previous Surgery:surgical procedure: (Right endoscopic carpal tunnel release); date (02-22-2019); 5 weeks ago Work Related:no Working:regular duty; [employer]:Pt here for follow-up of R ECTR. She states some pain with certain movements. She also notes n/t in her R thumb. Patient reports improvement in preoperative numbness and tingling, now only with residual and are minute tingling along the ulnar border of her thumb. She does report some soreness in the palm, most predominantly over the thenar pillar, which is gradually improving. Left hand symptoms remains minimally symptomatic at this time. MAGDALENA MORENO MD [address] [place] [address], [address], [facility] 04/02/2019 15:59:45 04/19/2021 text/html I am seeing this patient today in consultation at the request of my colleague Dr. Gregg Main for nose concerns.Patient reports left nasal sore for over 1 year.She describes waxing and waning of symptoms of tenderness inside the left nostril. She denies bleeding.She reports postnasal drainage.She separately reports chronic cough. She started taking allergy medication only very recently.She reports rhinorrhea that is intermittent and clear worse on the left side.No prior allergy testing in the last 1 year.PMH: Carpal tunnel surgery, hysterectomySocial Hx: Never smoker, works at [employer], marriedFamily Hx: Reportedly healthy EDA GOMES MD [facility] [place], [address], [facility] 04/19/2021 14:03:41 OBGyn Episode No OBEpisode recorded.
== END 2024-10-01 23:59 | disposition home or self-care (01) ==
LOC: LAB.DROPOF 10-05 11:20
PROVIDERS: PCP Nurse Practitioner Family; Visit Provider Nurse Practitioner Family
DX: N39.0 Urinary tract infection, site not specified (principal)
CPT/HCPCS: 87086

== ENCOUNTER 2024-10-14 15:25 | Outpatient (CLI) | payer BC, SELFPAY ==
--- OUTSIDE RECORDS SUMMARY | 2024-10-15 15:02 | XMS_ITS | Data Portability ---
Author Organization TELMA DIO Corbin CONROE CLOSED Address [address] [facility] [address] [place] [address] Care Team Providers Care Graduate Engineer Name Role Phone GREGG MAIN Primary Care Provider [phone] Assessment Encounter Date Assessment Date Assessment LastModified [...] 2 % topical ointment 2020 021 [facility], [address], [address], 14:00:51 Patient TargetsNo targets recorded. Patient Instructions Encounter Date Encounter Id Patient Instructions Last Modified By Organization Details Last Modified Time 04/19/2021 [id number] It was a rosemary childers evaluating this [...] Note completed MAGDALENA MORENO MD [address] [place], [address], [facility] 02/22/2019 08:30:31 hysterectomy completed [facility] 04/19/2021 13:33:54 Carpal tunnel surgery completed [facility] 04/19/2021 13:34:04 Imaging Results None recorded. Procedure Notes None recorded. Medical Equipment None Reported. Allergies Allergen ID Allergen Name Allergen Category Reaction Reaction Severity Criticality Documentation Date Start Date Code Code System Note Provider Name and Address Organization Details Recorded Time 459935 Substance with sulfonami de structure and antibacte rial mechanism of action (substanc e) medicatio n Not available Not available Not available 09/01/2018 89547 8003 SNOMED Mary Morocho [facility] 9 14:02:06 Medications Name Sig Start Date [...] Updated DateTime 02/12/2019 165.1 cm 22.3 kg/m2 00359.38 g Francia Jeffery [facility] 02/12/2019 14:33:43 Date Recorded Body height Body mass index (BMI) Body weight Provider Name and Address Organization Details Last Updated DateTime 03/04/2019 165.1 cm 22.3 kg/m2 32894.38 g Francia Jeffery [facility] 03/04/2019 15:12:49 Date Recorded Body height Body mass index (BMI) Body weight Provider Name and Address Organization Details Last Updated DateTime 04/02/2019 165.1 cm 22.3 kg/m2 29862.38 g Myla Rios [facility] 04/02/2019 12:59:38 Date Recorded Body weight Body mass index (BMI) Body height Body temperature Respiratory rate Oxygen saturation Oxygen saturation in Arterial blood by Pulse oximetry Heart rate Systolic blood pressure Diastolic blood pressure Provider Name and Address Organization Details Last Updated DateTime 1 52805.3 4 g 21.1 kg/m2 172.72 cm 98.1 [degF] 16 /min 98 % 98 % 70 /min 114 mm[Hg] 73 mm[Hg] Kita Love [facility] 1 13:37:15 Social History Question Answer Notes LastModified by [facility] Details LastModified Time Tobacco Smoking Status Never Smoker Mary Morocho [facility] 09/01/2018 14:02:24 What Is Your Level Of [...] Functional Status Question Answer Note LastModified by [facility] Details LastModified Time Do you use any [...] 14:02:12 Medical History Condition Response Allergies/Hayfever N Gout N Other N Anxiety/Depression N Thyroid Disease N Heart Conditions N Kidney Stones N Hernia N Migraines N COPD N Glaucoma N Pneumonia N Skin Problems N Immune System Disorder N Anesthesia Complications N Heart Attack ([place]) N Mental Illness N Neurological Problems N [...] SNOMED-CT Code Diagnosis ICD10 Code Diagnosis Note [id number] MAGDALENA MORENO MD ORTHOPEDI [facility] [address] [place] [address] 09/01/2018 13:39:31 09/01/2018 15:44:52 Carpal tunnel syndrome 98036413 G56.01 G56.02 EMG/NCV (07/24/18) demonstrat ed moderate bilateral carpal tunnel syndrome. No evidence of radiculopa thy or peripheral neuropathy . Lateral epicondylitis 20 2141821 M77.11 [id number] MAGDALENA MORENO MD [facility] [address] [place] [address] 02/12/2019 14:31:12 02/15/2019 09:10:21 Carpal tunnel syndrome 05613095 G56.01 G56.02 EMG/NCV (07/24/18) demonstrat ed moderate bilateral carpal tunnel syndrome. No evidence of radiculopa thy or peripheral neuropathy . Lateral epicondylitis 20 8817128 M77.11 [id number] MAGDALENA MORENO MD SURGERY SCHEDULE [address] [place] [address] 02/22/2019 06:54:21 02/22/2019 06:57:39 [id number] MAGDALENA MORENO MD [facility] [address] [place] [address] 03/04/2019 14:38:00 03/04/2019 16:02:07 Carpal tunnel syndrome 77964348 G56.02 EMG/NCV (07/24/18) demonstrat ed moderate bilateral carpal tunnel syndrome. No evidence of radiculopa thy or peripheral neuropathy . status post right endoscopic carpal tunnel release (02/22/19) Lateral epicondylitis 20 7162729 M77.11 Postoperative care 44574 9007 Z48.89 1.5 weeks status post right endoscopic carpal tunnel release (02/22/19) [id number] MAGDALENA MORENO MD [facility] [address] [place] [address] 04/02/2019 12:41:23 04/02/2019 13:46:51 Postoperative care 530794090 Z48.89 6 weeks status post right endoscopic carpal tunnel release (02/22/19) Carpal cornelius kathi syndrome 33164863 G56.02 EMG/NCV (07/24/18) demonstrat ed moderate bilateral carpal tunnel syndrome. No evidence of radiculopa thy or peripheral neuropathy . status post right endoscopic carpal tunnel release (02/22/19) Lateral epicondylitis 20 8027198 M77.11 [id number] MD TELMA ESCOBAR ENT [facility] CLOSED [address] [place] [address] 04/19/2021 13:24:04 04/19/2021 14:18:24 Nasal vestibulitis 11940917 J34.89 Suspect left (PT declined scope)-Pre scribe mupirocin ointment 2-3 times daily x14 days, recheck 1 month Posterior rhinorrhea 758 41728 R09.82 -Provided sample deep sea spray to use as needed. Chronic rhinitis 7225060 6 J31.0 -Discussed allergy testing, Revisit MQT next visit. Health Concerns Section Related Observation LastModified by Organization Detai ls LastModified Time None Recorded Concern Status LastModified by Organization Details LastModified Time None Recorded Advance Directives Directive None Recorded Payers Insurance Date Sequence Insurance Name Policy Number Policy Zapata Covered Member ID Zapata Member ID Guarantor Name 04/18/2021 1 [place] [id number] August Karsten [id number] August Karsten 05/14/2021 1 [place] [id number] August Karsten [id number] August Karsten Notes Date Note Type Note Provider Name and Address Organization Details Recorded Time 02/12/2019 text/html Hand SurgeryRepo rted bypatient.Hand Dominance:right Location:bilateral Severity:pain level 0/10 Duration:date of injury: 0 Previous Surgery:none Work Related:no Working:regular duty; [employer] Patient is currently in a:splint; right wrist [...] hand is minimally symptomatic. MAGDALENA MORENO MD [address] [place] [address], [address], [facility] 02/12/2019 17:51:20 03/04/2019 text/html Hand SurgeryRepo rted bypatient.Hand Dominance:right Location:bilateral Severity:pain level 0/10 Duration:date of injury: 0 Previous Surgery:surgical procedure: (Right endoscopic carpal tunnel release); date (02-22-2019) Work Related:no Working:no; [employer] Patient is currently in a:splint; right wrist [...] hand symptoms remain minimal at this time. MAGDALENA MORENO MD [address] [place], [address], [facility] 03/04/2019 15:55:33 04/02/2019 text/html Hand SurgeryRepo rted bypatient.Hand Dominance:right Location:right Severity:pain level 3/10 Previous Surgery:surgical procedure: (Right endoscopic carpal tunnel release); date (02-22-2019); 5 weeks ago Work Related:no Working:regular duty; [email or web address]:Pt here for follow-up of R ECTR. [...] symptomatic at this time. MAGDALENA MORENO MD [address] [place], [address], [facility] 04/02/2019 15:59:45 04/19/2021 text/html I am [...] surgery, hysterectomySocial Hx: Never smoker, works at [email or web address], marriedFamily Hx: Reportedly healthy EDA GOMES MD [address] [place], [address], [facility] 04/19/2021 14:03:41 OBGyn Episode No OBEpisode recorded.
== END 2024-10-14 23:59 | disposition home or self-care (01) ==
LOC: LAB.DROPOF 10-15 15:01
PROVIDERS: PCP Nurse Practitioner Family; Visit Provider Nurse Practitioner Family
DX: R30.0 Dysuria (principal)
CPT/HCPCS: 87086